=== PATIENT | male | born 1950 | race Caucasian/White ===

== ENCOUNTER → 2024-01-10 09:07 | Outpatient (REF) | payer MEDICARE, OTHER, SELFPAY | LOC: DHCBS MAIN 09:07 | PROVIDERS: ATTENDING PHYSICIAN Internal Medicine Cardiovascular Disease; FAMILY PHYSICIAN Family Medicine | DX: I25.10 Atherosclerotic heart disease of native coronary artery without angina pectoris (principal); Z95.1 Presence of aortocoronary bypass graft; E78.00 Pure hypercholesterolemia, unspecified; N18.30 Chronic kidney disease, stage 3 unspecified | CPT/HCPCS: 93306 ==

== ENCOUNTER → 2024-04-16 07:39 | Outpatient (REF) | payer MEDICARE, OTHER, SELFPAY ==
[2024-04-16 09:14] LABS: Hematocrit 33.4 % (39.0-52.0); Mean Corp Hgb Conc. 32.9 g/dL (33.0-37.0); Mean Corpuscular Hgb 32.3 pg (27.0-31.0); Mean Corpuscular Volume 97.9 fL (80.0-94.0); Mean Platelet Volume 10.6 fL (7.4-10.4); Platelet Count 299 10^3/uL (130-400); Red Blood Cell Count 3.41 10^6/uL (4.70-6.10); Red Cell Dist. Width 13.2 % (11.5-14.5); White Blood Cell Count 9.6 10^3/uL (4.8-10.8)
[2024-04-16 09:33] LABS: NT-proBNP 4610 pg/ml
[2024-04-16 12:03] LABS: ALT (SGPT) 14 U/L (0-50); AST (SGOT) 22 U/L (17-59); Albumin 3.3 g/dl (3.5-5.0); Alkaline Phosphatase 65 U/L (38-126); Blood Urea Nitrogen 41 mg/dl (9-20); Calcium 8.8 mg/dl (8.4-10.2); Carbon Dioxide 20 mmol/L (22-30); Chloride 112 mmol/L (98-107); Glucose 80 mg/dl (70-99); HDL Cholesterol 30 mg/dl; LDL Cholesterol, Calculated 151 mg/dl; Phosphorus 3.9 mg/dl (2.5-4.5); Potassium 4.9 mmol/L (3.5-5.1); Sodium 140 mmol/L (135-145); Total Bilirubin 0.4 mg/dl (0.2-1.3); Total Cholesterol 204 mg/dl (50-199); Total Protein 6.2 g/dl (6.3-8.2); Triglyceride 117 mg/dl (10-149); Very Low Density Lipoprotein 23 mg/dl (0-30); eGFR 32.62
[2024-04-16 12:21] LABS: Calcium 9.1 mg/dl (8.4-10.2)
[2024-04-16 12:32] LABS: Urine Protein 16 mg/dl (0-12)
[2024-04-17 10:31] LABS: CRP, Highly Sensitive > 15.00 mg/L
[2024-04-18 09:40] LABS: Intact PTH 46.3 pg/ml (13.6-85.8)
== END ==
LOC: REG 07:39
PROVIDERS: ATTENDING PHYSICIAN Internal Medicine Cardiovascular Disease; FAMILY PHYSICIAN Family Medicine; REFERRING PHYSICIAN Internal Medicine
DX: Z95.1 Presence of aortocoronary bypass graft (principal); E78.00 Pure hypercholesterolemia, unspecified; N18.32 Chronic kidney disease, stage 3b; N39.0 Urinary tract infection, site not specified
CPT/HCPCS: 36415; 80053; 80061; 82570; 83880; 83970; 84100; 84156; 85027; 86141

== ENCOUNTER → 2024-08-17 09:18 | Outpatient (REF) | payer MEDICARE, OTHER, SELFPAY | LOC: SDSPAT 09:18 | PROVIDERS: ATTENDING PHYSICIAN Surgery; FAMILY PHYSICIAN Family Medicine; OTHER PHYSICIAN Internal Medicine Cardiovascular Disease | DX: Z01.810 Encounter for preprocedural cardiovascular examination (principal); I49.3 Ventricular premature depolarization; I45.10 Unspecified right bundle-branch block | CPT/HCPCS: 36415; 93005 ==

== ENCOUNTER 2024-08-27 06:40 | Day surgery (SDC) | payer MEDICARE, OTHER, SELFPAY ==
[2024-08-17 14:12] VITALS: BMI 24.2
--- NOTE | 2024-08-17 16:15 | PTCARENOTE ---
Abn ECG, Toya Ellis notified, no new requests.
[2024-08-27] VITALS (8 sets, daily range): BP systolic 139–164; BP diastolic 72–82; BMI 24.2
[2024-08-27] MEDS: TYLENOL 1000 MG PO (12:15)
[2024-08-27] MEDS: NORMOSOL-R/PLASMALYTE-A 1000 IV (12:16)
--- NOTE | 2024-08-27 13:39 | W.SUR.PREOP ---
Pre-Operative Surgical Note
-
I have examined this patient prior to the performance of the scheduled procedure.
The patient's condition is unchanged from the time of the current History and
Physical and the patient is able to undergo the scheduled procedure.
--- NOTE | 2024-08-27 13:45 | HP.FOC2 ---
Focused History & Physical
Chief Complaint
HPI:
Chief Complaint: Incisional hernia
HPI / Indication for Planned Procedure:
Relevant Past Medical History: Negative
Relevant Social History: Negative
Relevant Family History: Negative
Relevant Past Surgical History: Negative
Review of Systems
Review of Pertinent Systems: All Systems Negative
Medication
See Medication form for detailed medications: Yes
Medication List (including Herbals & OTC):
zinc 100 mg tablet (Zinc Chelate) 100 mg PO DAILY Supplement 09/13/20
B-complex with vitamin C 1 cap PO DAILY Supplement 11/08/20
ascorbic acid (vitamin C) 500 mg tablet (Vitamin C) 500 mg PO DAILY Supplement 11/08/20
cholecalciferol (vitamin D3) 25 mcg (1,000 unit) tablet 5,000 units PO DAILY Supplement 11/08/20
coenzyme Q10 100 mg capsule (Co Q-10) 100 mg PO DAILY Supplement 11/08/20
Berberin Complex 1 unit PO DAILY 08/18/24
Lcarnitine 1 unit PO DAILY 08/18/24
Multivitamin Food Source 1 unit PO DAILY 08/18/24
Pqq 1 unit PO DAILY 08/18/24
Super K 1 unit PO DAILY 08/18/24
arginine 1,000 mg-B12 16.6 mcg-folic acid 66.6 mcg-B6 3.3 mg tablet (L-Arginine [facility] [place]) 1 tab PO DAILY 08/18/24
cranberry 1 unit PO DAILY 08/18/24
hawthorn 500 mg capsule 1 mg PO DAILY 08/18/24
magnesium gluconate 500 mg tablet 1 mg PO DAILY 08/18/24
pvvju1-xda-lym-other gfwhw3p-hrvs oil 350 mg-400 mg capsule 750 cap PO TID 08/18/24
quercetin 500 mg capsule 1 mg PO DAILY 08/18/24
resveratrol 50 mg capsule 50 mg PO DAILY 08/18/24
selenium 50 mcg tablet 50 mcg PO DAILY 08/18/24
taurine 500 mg capsule 1,000 mg PO DAILY 08/18/24
vitamin E 1,000 unit tablet 1 tab PO DAILY 08/18/24
acetaminophen 325 mg tablet 650 mg (2 x 325 mg) PO Q6HPRN PRN mild pain #14 tabs 08/27/24
ibuprofen 600 mg tablet 600 mg PO Q6H PRN pain #14 tabs 08/27/24
tramadol 50 mg tablet 25 mg (1/2 x 50 mg) PO Q6HPRN PRN severe pain/breakthrough pain #12 tabs 08/27/24
Medications Reviewed: Yes
Allergies and Reactions
Patient has Allergies: Yes
Noted Allergies and Reactions:
Allergy/AdvReac Type Severity Reaction Status Date / Time
No Known Allergies Allergy Unverified 08/27/24 11:56
Pertinent Physical Exam
All Other Systems: Negative
Head/Neck: Normal
Diagnosis / Assessment
Incisional hernia
Plan / Procedure
Robotic incisional hernia repair with mesh
Anesthesia/Sedation to be done by Anesthesia Provider: Yes
--- NOTE | 2024-08-27 16:23 | W.IMMPOSTOP ---
Surgical Immed Post Op Note
-
Primary Surgeon: Isiah Dutton MD
Assisting Surgeon: None
Pre-op Diagnosis: Ventral incisional hernia
Post-op Diagnosis: Same
Procedure Performed: Robotic ventral incisional hernia repair with mesh (JESSICA approach)
Anesthesia Type: General
Specimen / Cultures: None
Estimated Blood Loss: 3 cc
Complications: None
Operative Findings: 1.5 cm centimeter defect half a centimeter above the umbilicus. There was an additional 0.5 cm defect noted here. The preperitoneal space was dissected and after closure of the defect with a running 0 V-Loc 180 suture the
repair was reinforced with a 10 x 10 cm Bard soft uncoated polypropylene mesh.
--- NOTE | 2024-08-27 16:27 | OR.RPT ---
Operative Report
Operative Report
Patient Name: Jose Nicole
: 1950
Date of Operation: 08/27/2024
Preoperative Diagnosis: Incisional hernia
Postoperative Diagnosis: Same
Procedure(s):
Robotic incisional hernia repair with mesh (JESSICA approach)
Surgeon(s):
Dr. Dutton
[place]water Technician(s):
ZOE Hathaway
Anesthesia: General
Estimated Blood Loss: 3 cc
Urine Output: None
Drains/Lines/Implants:
10 x 10 cm round Bard soft mesh
Specimens:
None
HPI/Surgical Indications:
This is a 73-year-old male who was seen in my office for a symptomatic supraumbilical hernia at a previous incision site and diagnosed with an incarcerated incisional hernia. Risks/Benefits/Alternatives were discussed at length, and the patient
agreed to proceed with surgery.
Operative Findings: 1.5 cm centimeter defect half a centimeter above the umbilicus. There was an additional 0.5 cm defect noted here. The preperitoneal space was dissected and after closure of the defect with a running 0 V-Loc 180 suture the
repair was reinforced with a 10 x 10 cm Bard soft uncoated polypropylene mesh.
Procedure Description:
The patient was brought to the Operating Room and placed in the supine position with the arms tucked. IV antibiotics were infused and Venodyne stockings placed. Following uneventful induction of general endotracheal anesthesia, an orogastric tube
were placed. The abdomen was prepped and draped in the usual sterile fashion. The abdomen was entered using a Veress technique which required 1 pass, pneumoperitoneum to 15 mmHg was obtained without difficulty. An 8mm trochar was passed through
the abdominal wall roughly 20 cm laterally from the defect in the left upper quadrant, we then confirmed that no inadvertent injury was made while passing the trocar or Veress needle. We then placed two additional 8 mm ports in the left lower
quadrant. Bilateral tap blocks were performed. The robot was docked. We then introduced our prograsper through the inferior/left hand port and a monopolar scissors through the superior port. We then turned our attention to the hernia which had
no intra-abdominal contents. We then began taking a flap down roughly 6 cm away from the defect and roughly 11 cm in length taking care to stay in the pretransversalis plane. The preperitoneal fat was taken down off of the posterior rectus sheath
both superior and inferior to the hernia defect such that we were able to get our 'volcano sign'. We then worked on reducing the defect which contained preperitoneal fat and continued our dissection out laterally for an additional 6 to 7 cm. Once
our flap was created we introduced a ruler and a 0 V-Loc 180. The main hernia defect measured 1.5 cm, there was an additional subcentimeter umbilical defect about half a centimeter inferior to the incisional one. The pocket measured 11 x 11 cm. I
had my specimen preparation assistant cut a 11 x 11 cm piece of Bard soft mesh marked with 0 Vicryl suture at the center, as I closed the incisional and umbilical defects. The mesh was then sutured to the posterior rectus sheath in 4 quadrants with 2-0 vircyls to
ensure good apposition. A 2-0 Monocryl was introduced which was used to close our flap. There were multiple rents in the peritoneum that were closed with 2-0 Vicryl sutures. There was no exposed mesh at the end of our suturing. All sutures were
removed. The robot was undocked. The ports were removed under direct visualization and pneumoperitoneum was evacuated. The port sites were closed with 4-0 Monocryl followed by Dermabond. Counts were correct and overall, the patient tolerated the
procedure well and was taken to the Recovery Room postoperatively in stable condition.
I was the attending physician and performed the procedure with assistance of the PA above. The assistance of ZOE Hathaway was required due to the complexity of the procedure. During the procedure Laurie assisted with port placement, instrument
and needle exchanges, and closure of the wound. I was present for all portions of the case, excluding skin closure.
Isiah Dutton MD
== END 2024-08-27 17:36 | disposition home or self-care (01) ==
LOC: SDS 06:40
PROVIDERS: ATTENDING PHYSICIAN Surgery
DX: K43.2 Incisional hernia without obstruction or gangrene (principal)
CPT/HCPCS: 49591; C1781

== ENCOUNTER 2025-03-13 23:39 | Inpatient (IN) | payer MEDICARE, OTHER, SELFPAY ==
[2025-03-13 20:47] VITALS: BP 147/72
[2025-03-13 20:55] VITALS: BMI 23.7
[2025-03-13 21:00] VITALS: BP 147/64
[2025-03-13] MEDS: TYLENOL 1000 MG PO (21:02)
[2025-03-13] MEDS: NSS 1000 IV (21:02)
[2025-03-13 21:14] LABS: Hematocrit 34.9 % (39.0-52.0); Hemoglobin 11.9 g/dL (13.0-18.0); Mean Corp Hgb Conc. 34.1 g/dL (33.0-37.0); Mean Corpuscular Volume 94.3 fL (80.0-94.0); Nucleated Red Blood Cells % 0 % (-); Platelet Count 178 10^3/uL (130-400); Red Cell Dist. Width 12.8 % (11.5-14.5)
--- NOTE | 2025-03-13 21:15 | ED.GENMED ---
History of Present Illness
General
Chief Complaint: Fever
Source: patient and ambulance crew
Time Seen by Provider: 03/13/25 20:56
History of Present Illness
History of Present Illness:
74-year-old male brought to the emergency room for fever. Patient has been feeling unwell for the past couple weeks. He has a cough, fatigue. Today he had a fever reportedly up to 105. 911 was called because he was so fatigued and his
temperature was so high. Patient denies taking any medications which would make him immunocompromised. He denies any recent hospitalizations. Aside from his mild cough he has no other focal complaints. He does endorse having prostate issues in
the past.
Past History
Past History
ED Past Medical History: CAD, Other (Rheumatoid arthritis with new onset, renal insufficiency) and Other (BPH, self caths); Negative Cancer or HTN
ED Past Surgical History: Cardiac (2 vessell CABG Sep 2020)
Social History
Tobacco: Non-smoker
Personal:
Living: with family
Employment: Employed
Phy Exam
Physical Exam
Physical Exam:
General: Awake, Alert, Oriented X3. Perhaps mildly confused, no acute distress appears stated age
Vitals: Febrile, tachycardic, normotensive
Head: Atraumatic
Eyes: Pupils equal, EOMI
Throat: Airway intact, no exudates, dry mucosa
Neck: Trachea midline
Lungs: Coarse breath sounds bilateral bases
Heart: Regular rate, no murmurs
Abd: Soft, Nontender, No pulsatile mass
Neuro: Nonfocal
Skin: Warm, dry, no rash
Extremities: pulses equal b/l, no edema
Sepsis
Sepsis Screening
Sepsis Assessment: Sepsis
Sepsis Screen
Sepsis Screen: Sepsis
Date: 03/16/25
Time: 08:37
Course
Orders/Labs/Results
Orders:
Orders
03/13/25 20:56
0.9% Sodium Chloride 1000 ml [Nss] 1,000 ml IV BOLUS
Acetaminophen [Tylenol] 1,000 mg PO NOW STA
03/13/25 20:57
CR Chest - 2 Views Urgent
Comment:
Reason For Exam: fever, cough
03/13/25 21:01
Complete Blood Count/With Diff Urgent
Comprehensive Metabolic Panel Urgent
Lactic Acid Q4H
Comment: CANCEL 2nd LACTIC ACID IF 1st LACTIC ACID IS LESS THAN 2
Blood Culture Q30M
VIKI Source: Blood/Venous
Specimen Description:
Blood Culture Q30M
VIKI Source: Blood/Venous
Specimen Description:
Influenza A+B Rapid Molecular Urgent
VIKI Source: Nasal Swab
Specimen Description:
03/13/25 21:13
Urinalysis Reflex To Culture Urgent
Date Specimen was Collected: 03/13/25
Time Specimen was Collected: 20:58
Urine Microscopic Reflex Cult Urgent
Urine Culture Urgent
VIKI Source: U
Specimen Description:
Date Specimen was Collected: 03/13/25
Time Specimen was Collected: 20:58
03/13/25 22:37
CefTRIAXone [Rocephin] 2,000 mg IV NOW STA
Doxycycline [Vibramycin] 100 mg PO NOW STA
03/13/25 23:00
Flush (0.9% Sodium Chloride) [Flush (Nss)] See Dose Instructions IV PER PROTOCOL
03/13/25 23:02
Admit/Transfer Patient As Directed
Co-Sign Provider:
Level of Care: Inpatient admission
Assign to:: Medical/Surgical
Physician / Group: edith
Diagnosis: sepsis pneumonia
Reason for Hospitalization: sepsis pneumonia
Expected length of stay greater than two midnights?: Yes
ELOS- Estimated Length of Stay in days: 2
I certify the patient meets the requirements for IP care: Yes
03/13/25 23:03
PRN Pain Medication Management As Directed
May give lesser potent ordered pain med per pt: Yes
preference::
Protocol:: Medication orders for pain may be administered in a
manner that supports deferring to patient preference
when the pt is:
- Requesting an ordered lesser potent pain medication.
Least to most potent pain medications are defined
as: acetaminophen < NSAID < tramadol < opioids
(morphine, oxycodone, hydromorphone).
- Requesting a lesser dose of the same medication IF
ORDERED.
- Requesting a less intrusive route of administration
if both routes are prescribed by the provider (PO <
IV).
03/13/25 23:04
Code Status As Directed
Resuscitation Status: Full Code
03/13/25 23:06
Influenza A+B Rapid Molecular Urgent
VIKI Source: Nasal Swab
Specimen Description:
03/13/25 23:50
COVID-19 Antigen Urgent
Source: Nasal Swab
03/14/25 01:41
0.9% Sodium Chloride 1000 ml [Nss] 1,000 ml IV 100 mls/hr
Acetaminophen [Tylenol] 650 mg PO Q4HPRN PRN
Pantoprazole [Protonix] 40 mg PO BID
03/14/25 01:41
Activity As Directed
Activity Level: As Tolerated
Bladder Scan As Directed
Follow Bladder Retention/Intermittent Cath Algorithm?: Yes
PRN if no void in __ hours: 6
Frequency: Per Retention Algorithm
If Bladder Scan Result >: 400
then:: Straight cath
Straight Cath As Directed
Frequency: Per Retention Algorithm
Additional Instructions: straight cath as needed per acute urinary retention algorithm for 24 hrs
Additional Instructions: for bladder scan greater than 400 mL
Vital Signs As Directed
Frequency: Per unit guidelines
DX Deep Vein Thrombosis Video Routine
03/14/25 02:38
Lactic Acid Q4H
Comment: CANCEL 2nd LACTIC ACID IF 1st LACTIC ACID IS LESS THAN 2
03/14/25 06:44
Complete Blood Count/With Diff IN AM
Comprehensive Metabolic Panel IN AM
03/14/25 08:00
Doxycycline [Vibramycin] 100 mg PO Q12
Heparin 5,000 units SC Q12
03/14/25 Dinner
Regular
At Your Request: Limited Participation
03/14/25 22:00
CefTRIAXone [Rocephin] 1,000 mg IV Q24H
Abnormal Lab Results
03/13/25 03/13/25
21:01 21:13
WBC 13.8 H 10^3/uL
(4.8-10.8)
RBC 3.70 L 10^6/uL
(4.70-6.10)
Hgb 11.9 L g/dL
(13.0-18.0)
Hct 34.9 L %
(39.0-52.0)
MCV 94.3 H fL
(80.0-94.0)
MCH 32.2 H pg
(27.0-31.0)
MPV 11.5 H fL
(7.4-10.4)
Abs Immat Gran (auto) 0.1 H 10^3/uL
(0-0.05)
Absolute Neuts (auto) 11.4 H 10^3/uL
(1.4-6.5)
Absolute Lymphs (auto) 0.8 L 10^3/uL
(1.2-3.4)
Absolute Monos (auto) 1.6 H 10^3/uL
(0.1-0.6)
Immature Gran % 0.7 H %
(0-0.5)
Neutrophils % 82.2 H %
(42.2-75.2)
Lymphocytes % 5.6 L %
(20.5-51.1)
Monocytes % 11.4 H %
(1.7-9.3)
Sodium 133 L mmol/L
(135-145)
Carbon Dioxide 16 L mmol/L
(22-30)
BUN 53 H mg/dl
(9-20)
Creatinine 3.3 H mg/dL
(0.7-1.3)
Glucose 134 H mg/dl
(70-99)
Calcium 8.3 L mg/dl
(8.4-10.2)
Total Protein 6.2 L g/dl
(6.3-8.2)
Ur Occult Blood Reflex 3+ A
(Negative)
Urine RBC 16-20 A /HPF
(0-2)
Urine Bacteria (Reflex) Many A
(Negative)
Urine Albumin (Reflex) 3+ A
(Neg - Trace)
03/13/25 21:01
03/13/25 21:01
Vital Signs
Initial and Last Documented VS:
Initial Vital Signs
Temp Pulse Resp BP Pulse Ox
103.2 F H 93 16 147/72 96
03/13/25 20:47 03/13/25 20:47 03/13/25 20:47 03/13/25 20:47 03/13/25 20:47
Last Documented Vital Signs
Temp Pulse Resp BP Pulse Ox
97.7 F 121 16 101/55 92
03/16/25 07:54 03/16/25 07:54 03/16/25 07:54 03/16/25 07:54 03/16/25 07:54
MDM/Problems Addressed
Differential Diagnosis Includes:
UTI, pneumonia, COVID, other viral illness
MDM/Problems Addressed:
Patient presents with fatigue, cough. He is found to be febrile here. Workup reveals multifocal pneumonia. Urine not suggestive of urinary tract infection. Patient started on ceftriaxone and doxycycline. Patient required hospitalization due to
renal failure as well as hypoxia.
Chronic conditions affecting care: HTN, CAD and Other (Chronic kidney disease)
*Radiology
Radiology exam reviewed: preliminary read by ED provider (My review of the patient's chest x-ray reveals multifocal pneumonia)
*Pulse Oximetry
SaO2: 96
Oxygen Mode of Delivery: Room air
Patient hypoxic: no
*EKG
Interpreted by ED Provider?: NA
*Critical Care Note
Total Time (30-74mins, 75-104mins- exclusive of procedures): Not Applicable
ED Attending Note
-
Portions of this chart may have been created with voice recognition software.� Occasional wrong word or��sound alike� substitutions may have occurred due to the inherent limitations of voice recognition software.
Discharge Plan
Departure
Patient Disposition: Admit
Date of Disposition: 03/13/25
Time of Disposition: 22:45
Admit to: Med/Surg
Presentation/result/management discussed w/ accepting MD/DO: Hospitalist
Condition: Fair
Discharge Problem:
Pneumonia, Acute on chronic kidney failure
Interventions
Interventions:
*Risk Screen - Suicide Last Done: 03/14/25 01:49
*General Assessment Last Done: 03/13/25 20:47
*Neglect/Abuse Screening Last Done: 03/13/25 20:47
*ED COVID-19 Vaccine History Last Done: 03/14/25 01:49
*Nursing Disposition Last Done: 03/14/25 01:30
ED- Neurological Assessment Last Done: 03/13/25 20:52
ED-Skin Assessment Last Done: 03/13/25 20:52
Discharge Date and Time
Discharge Date/Time: 03/14/25 01:46
--- NOTE | 2025-03-13 21:30 | EDRN ---
Attempt to straight cath patient d/t patient's inability to void when using urinal and bladder scan of 425. Unable to pass 16 FR cath, second attempt using caude unsuccessful. Pt tolerated well. Dr. Back made aware.
[2025-03-13 21:36] LABS: ALT (SGPT) 36 U/L (0-50); AST (SGOT) 42 U/L (17-59); Albumin 3.5 g/dl (3.5-5.0); Alkaline Phosphatase 56 U/L (38-126); Blood Urea Nitrogen 53 mg/dl (9-20); Calcium 8.3 mg/dl (8.4-10.2); Carbon Dioxide 16 mmol/L (22-30); Chloride 106 mmol/L (98-107); Estimated Creatinine Clearance 19 ml/min; Glucose 134 mg/dl (70-99); Potassium 4.7 mmol/L (3.5-5.1); Sodium 133 mmol/L (135-145); Total Protein 6.2 g/dl (6.3-8.2); eGFR 18.85
[2025-03-13 21:51] LABS: Urine Character Clear (Clear)
[2025-03-13 21:59] LABS: Urine Squamous Cell 0-2 /LPF (Few)
[2025-03-13 22:00] VITALS: BP 113/62
[2025-03-13 22:00] LABS: Urine Red Blood Cell 16-20 /HPF (0-2); Urine White Cell 0-2 /HPF (0-5)
[2025-03-13 23:00] VITALS: BP 115/59
[2025-03-13] MEDS: ROCEPHIN 2000 MG IV (23:06)
[2025-03-13] MEDS: VIBRAMYCIN 100 MG PO (23:06)
--- NOTE | 2025-03-13 23:08 | HPS.HSE ---
Family Physician
-
Family Physician: NOT KNOW UNKNOWN - PT DOES
Chief Complaint
-
fever
History of Present Illness
74-year-old male past medical history of CAD status post CABG, BPH, bladder diverticulum status post cystoscopy with diverticulectomy, hyperlipidemia, rheumatoid arthritis, esophageal ulcers, Lyme's disease, CKD 3A, iron deficiency anemia,
presenting with fever and productive cough and fatigue for few days. He had fever up to 105 degrees today. Denies vomiting or diarrhea. Denies chest pain. Denies shortness of breath. Has sore throat for few days. No sick contacts
Recently he has been having dribbling of urine and difficulty voiding and had an episode of urine incontinence today. No prior episodes of incontinence.
Over the past few months he has also been having some difficulty swallowing large pills. No particular difficulty swallowing food or liquids. He had burping today. He has been having more heartburn recently.
He does not smoke or drink alcohol.
Medical History
Past Medical History
Past Medical History: Reports Other (CAD status post CABG, BPH, bladder diverticulum status post cystoscopy with diverticulectomy, hyperlipidemia, rheumatoid arthritis, esophageal ulcers, Lyme's disease, CKD 3A, iron deficiency anemia)
Past Surgical History: Reports None
Social History
Tobacco: Non-smoker
Alcohol: None
Drug: None
Family History
Family History: Not pertinent
Allergies / Home Medications
Allergies reflects when Allergies were last updated in [employer].
Home Medications with original date entered in [employer]
Allergy/Medication List:
Allergies
Allergy/AdvReac Type Severity Reaction Status Date / Time
No Known Allergies Allergy Verified 03/13/25 20:46
Home Medications
zinc 100 mg tablet (Zinc Chelate) 100 mg PO DAILY Supplement 09/13/20
B-complex with vitamin C 1 cap PO DAILY Supplement 11/08/20
ascorbic acid (vitamin C) 500 mg tablet (Vitamin C) 500 mg PO DAILY Supplement 11/08/20
cholecalciferol (vitamin D3) 25 mcg (1,000 unit) tablet 5,000 units PO DAILY Supplement 11/08/20
coenzyme Q10 100 mg capsule (Co Q-10) 100 mg PO DAILY Supplement 11/08/20
Berberin Complex 1 unit PO DAILY 08/18/24
Lcarnitine 1 unit PO DAILY 08/18/24
Multivitamin Food Source 1 unit PO DAILY 08/18/24
Pqq 1 unit PO DAILY 08/18/24
Super K 1 unit PO DAILY 08/18/24
arginine 1,000 mg-B12 16.6 mcg-folic acid 66.6 mcg-B6 3.3 mg tablet (L-Arginine [employer]) 1 tab PO DAILY 08/18/24
cranberry 1 unit PO DAILY 08/18/24
hawthorn 500 mg capsule 1 mg PO DAILY 08/18/24
magnesium gluconate 500 mg tablet 1 mg PO DAILY 08/18/24
eybii1-ggg-coc-other wdomq0n-qzzf oil 350 mg-400 mg capsule 750 cap PO TID 08/18/24
quercetin 500 mg capsule 1 mg PO DAILY 08/18/24
resveratrol 50 mg capsule 50 mg PO DAILY 08/18/24
selenium 50 mcg tablet 50 mcg PO DAILY 08/18/24
taurine 500 mg capsule 1,000 mg PO DAILY 08/18/24
vitamin E 1,000 unit tablet 1 tab PO DAILY 08/18/24
acetaminophen 325 mg tablet 650 mg (2 x 325 mg) PO Q6HPRN PRN mild pain #14 tabs 08/27/24
ibuprofen 600 mg tablet 600 mg PO Q6H PRN pain #14 tabs 08/27/24
tramadol 50 mg tablet 25 mg (1/2 x 50 mg) PO Q6HPRN PRN severe pain/breakthrough pain #12 tabs 08/27/24
Review of Systems
-
History Source: Patient
A 12 point ROS was completed and negative except as noted: Yes
Constitutional: Reports No Symptoms
EENT: Reports No Symptoms
Respiratory: Reports See HPI
Cardiac: Reports No Symptoms
Abdomen/GI: Reports No Symptoms
: Reports No Symptoms
Musculoskeletal: Reports No Symptoms
Skin: Reports No Symptoms
Neurological: Reports No Symptoms
Endocrine: Reports No Symptoms
Hematologic/Lymphatic: Reports No Symptoms
Psych: Reports No Symptoms
Physical Exam
Vital Signs
Vital Signs
Temp Pulse Resp BP Pulse Ox
98.8 F 72 10 115/59 95
03/13/25 22:21 03/13/25 23:00 03/13/25 23:00 03/13/25 23:00 03/13/25 23:00
Physical Exam
General: Well Developed, Well Nourished and No Apparent Distress
HEENT: NormoCephalic, Moist mucous membranes and Atraumatic
Respiratory: Clear
Cardiac: S1/S2 and Regular Rhythm; No Murmur or Rub
GI: Soft, Non Tender, Non Distended and Normal Bowel Sounds; No Organomegaly
Rectal: Deferred by Provider
Musculoskeletal: No Clubbing, No Cyanosis and No Edema
Skin: No Rash
Neuro: Nonfocal/grossly intact
Laboratory Results
-
03/13/25 21:01
03/13/25 21:01
Laboratory Results
Lactic Acid 1.3 mmol/L (0.7-2.0) 03/13/25 21:01
Total Bilirubin 0.7 mg/dl (0.2-1.3) 03/13/25 21:01
AST 42 U/L (17-59) 03/13/25 21:01
ALT 36 U/L (0-50) 03/13/25 21:01
Alkaline Phosphatase 56 U/L (38-126) 03/13/25 21:01
Data Reviewed
-
Lab Data: Labs Reviewed by me
Old Records: Reviewed
Impression/Plan
-
IMPRESSION:
PLAN:
# Sepsis (fever, tachycardia, leukocytosis) secondary to right-sided pneumonia
- Chest x-ray report pending but appears to show right-sided midlung infiltrate
-Urinalysis unremarkable
- Check sputum culture, blood cultures
- IV fluids
- Check COVID and influenza
- Ceftriaxone/doxycycline
# JUDIE on CKD 3A
# Non-anion gap metabolic acidosis
-Baseline creatinine around 2.1-2.3
- Likely prerenal
- Monitor with IV fluid
# Urinary incontinence
# History of bladder diverticulum status post cystoscopy diverticulectomy
# History of BPH
- Bladder scan protocol
- Outpatient follow-up with urology
# Dysphagia with pills possibly pill esophagitis
# History of GERD/esophageal ulcers
- Protonix 40 twice daily
- Outpatient follow-up with GI
CAD status post CABG
Hyperlipidemia
Rheumatoid arthritis
Lyme's disease
Chronic anemia
Iron deficiency anemia
Full code
DVT prophylaxis�heparin
Regular diet
[2025-03-14] VITALS (7 sets, daily range): BP systolic 120–153; BP diastolic 61–83; PULSE 91; O2SAT 97; BMI 22.8
[2025-03-14 00:07] LABS: COVID-19 Antigen Negative (Negative)
[2025-03-14] MEDS: NSS 1000 IV (02:06)
[2025-03-14] MEDS: PROTONIX 40 MG PO ×3 (02:06→20:33)
[2025-03-14 07:13] LABS: Hematocrit 32.4 % (39.0-52.0); Hemoglobin 10.9 g/dL (13.0-18.0); Mean Corp Hgb Conc. 33.6 g/dL (33.0-37.0); Mean Corpuscular Volume 94.2 fL (80.0-94.0); Nucleated Red Blood Cells % 0 % (-); Platelet Count 176 10^3/uL (130-400); Red Cell Dist. Width 13.0 % (11.5-14.5)
[2025-03-14 07:39] LABS: ALT (SGPT) 29 U/L (0-50); AST (SGOT) 31 U/L (17-59); Albumin 2.9 g/dl (3.5-5.0); Alkaline Phosphatase 44 U/L (38-126); Blood Urea Nitrogen 58 mg/dl (9-20); Calcium 8.4 mg/dl (8.4-10.2); Carbon Dioxide 17 mmol/L (22-30); Chloride 110 mmol/L (98-107); Estimated Creatinine Clearance 20 ml/min; Glucose 127 mg/dl (70-99); Potassium 4.6 mmol/L (3.5-5.1); Sodium 136 mmol/L (135-145); Total Protein 5.4 g/dl (6.3-8.2); eGFR 20.32
[2025-03-14] MEDS: VIBRAMYCIN 100 MG PO ×2 (08:17→20:33)
[2025-03-14] MEDS: HEPARIN 5000 UNITS SC ×2 (08:17→20:32)
--- NOTE | 2025-03-14 11:58 | W.PN.HOSP.TC ---
Addendum entered and electronically signed by Cayden Valero MD 03/14/25 13:33:
Discussed care plan with spouse
Apparently spouse stated of patient having frequent episodes of choking which patient likely under reporting to me during the morning rounds. Patient have a follow-up appointment with Dr. Villanueva on 16 April
Patient also having some hiccup and spouse requesting some medication. Thorazine can be tried although with side effect profile limiting use for now. Patient already on twice daily PPI, adding some Tums and if it is related to esophageal/gastritis
should improve.
Speech therapy evaluation is pending
Original Note:
Today's Communication/Plan
-
see note
Assessment / Plan
Assessment / Plan
# Sepsis
# Multifocal pneumonia
-Chest x-ray showing multifocal pneumonia with infrahilar airspace opacities in both lungs.
-Patient denies of history of having recurrent pneumonia. Not a smoker. No previous diagnosis of COPD/emphysema/asthma
-UA/COVID/flu negative
-Rule out bacteremia with ongoing high-grade fever episodes
-Maintained on empiric Rocephin/doxycycline
# JUDIE on CKD 3A
# Non-anion gap metabolic acidosis
-Baseline creatinine around 2.1-2.3
-cr trending down
-avoid nephrotoxic medication
-bladdr scan ordered
#Melena
#h/o esophageal ulcer
#Iron def anemia
-reporting black stool , new
-check stool for occult blood
-on iron supplement home ,
-maintain on bid ppi
# Urinary incontinence
# History of bladder diverticulum status post cystoscopy diverticulectomy
# History of BPH
- Bladder scan protocol
- Outpatient follow-up with urology
CAD status post CABG
Hyperlipidemia
Rheumatoid arthritis
Lyme's disease
Full code
DVT prophylaxis�heparin
Total time spent : 52 mins
Anticipated Discharge: 24 - 48 hours
Subjective/Interval History
-
Date of Service: March 14, 2025
Denies of having any shortness of breath
Dry cough only
Remains febrile
Not on oxygen
Objective Data
-
Labs:
Laboratory Results
03/14/25
06:44
WBC 11.5 H
Hgb 10.9 L
Hct 32.4 L
Plt Count 176
Sodium 136
Potassium 4.6
Chloride 110 H
Carbon Dioxide 17 L
BUN 58 H
Creatinine 3.1 H
Glucose 127 H
Calcium 8.4
Total Bilirubin 0.5
AST 31
ALT 29
Alkaline Phosphatase 44
Vital Signs:
Vital Signs
Temp Pulse Resp BP Pulse Ox
100.6 F H 86 16 129/61 96
03/14/25 07:37 03/14/25 07:37 03/14/25 07:37 03/14/25 07:37 03/14/25 07:37
Review of Systems
-
Respiratory: Reports Cough; Denies Trouble Breathing
Cardiac: Reports No Symptoms
Abdomen/GI: Reports No Symptoms
Physical Exam
-
General: No Apparent Distress and Comfortable
HEENT: Negative Oxygen
Respiratory: Clear to Auscultation
Cardiac: Rub
GI: Soft, Nontender, Nondistended and Normal Bowel Sounds
Musculoskeletal: No Edema
Neuro: Awake, Alert, Oriented, No Motor Deficits and Nonfocal/Grossly Intact
Psych: Calm
--- NOTE | 2025-03-14 13:01 | CHAP ---
Jose and his supportive , Delia, welcomed the visit. Emotional and spiritual support provided.
[2025-03-14] MEDS: TYLENOL 650 MG PO (15:29)
[2025-03-14] MEDS: TUMS CHEWABLE TABLET 400 MG PO (15:30)
--- NOTE | 2025-03-14 15:39 | CM ---
Patient seen bedside, initial assessment completed. Patient is a 74-year-old male past medical history of CAD status post CABG, BPH, bladder diverticulum status post cystoscopy with diverticulectomy, hyperlipidemia, rheumatoid arthritis, esophageal
ulcers, Lyme's disease, CKD 3A, iron deficiency anemia, presenting with fever and productive cough and fatigue.
Patient resides w/ spouse in a 3 sty split level home, 12 steps to enter the home, 12 steps to the second level of the home where bedroom and bathroom are located. Patient is independent in all areas. Patient has a grab bar in the shower and neb
machine that is used as needed. Denies SNF/HC hx.
Address, point of contact and insurance verified
PCP: Raymond Mcfarland
Pharmacy: [facility]
Therapy assessed, rec home health at d/c
Speech eval pending
Plan: Home w/ HH
[2025-03-14] MEDS: ROCEPHIN 1000 MG IV (20:33)
[2025-03-14] MEDS: SYNTHROID 50 MCG PO (23:00)
[2025-03-15 05:37] VITALS: BMI 22.5
[2025-03-15 07:18] VITALS: BP 132/65
[2025-03-15] MEDS: VIBRAMYCIN 100 MG PO ×2 (07:51→21:00)
[2025-03-15] MEDS: PROTONIX PO ×2 (07:51→07:58)
[2025-03-15] MEDS: HEPARIN SC ×2 (07:51→07:57)
[2025-03-15 09:37] LABS: Hematocrit 32.8 % (39.0-52.0); Hemoglobin 11.0 g/dL (13.0-18.0); Mean Corp Hgb Conc. 33.5 g/dL (33.0-37.0); Mean Corpuscular Volume 95.1 fL (80.0-94.0); Platelet Count 227 10^3/uL (130-400); Red Cell Dist. Width 13.1 % (11.5-14.5)
--- NOTE | 2025-03-15 09:37 | PTOTSP ---
Dysphagia Evaluation
No signs of oral/pharyngeal dysphagia or aspiration. Patient reporting signs concerning for esophageal dysphagia. See patient care note for details.
Recommend:
1. IDDSI 7 Regular, Thin
2. Medications - as best tolerated, consider 1 at at time with water
3. Intersperse liquids throughout meal and remain upright for 30 minutes as a reflux precaution
4. Gastroenterology consult
Will sign off. Please reconsult as appropriate.
[2025-03-15 10:05] LABS: Blood Urea Nitrogen 60 mg/dl (9-20); Calcium 8.7 mg/dl (8.4-10.2); Carbon Dioxide 14 mmol/L (22-30); Chloride 109 mmol/L (98-107); Estimated Creatinine Clearance 17 ml/min; Glucose 98 mg/dl (70-99); Potassium 4.3 mmol/L (3.5-5.1); Sodium 136 mmol/L (135-145); eGFR 16.98
--- NOTE | 2025-03-15 10:36 | CM ---
custodial operations manager reviewed patient's chart and met with patient and patient is hoping that he is for discharge today, manager rn case reviewed visiting nursing with patient and patient declined, home no needs when stable.
Plan; Home no needs.
--- NOTE | 2025-03-15 13:56 | W.PN.HOSP.TC ---
Today's Communication/Plan
-
Assessment / Plan
Assessment / Plan
NAD
Scleral Anicteric
MMM
No JVD
CTABL
RRR, S1/S2
Soft, NT, ND, BS+
Warm, Dry
AAOx3
Calm
# Sepsis
# Multifocal pneumonia
-Chest x-ray showing multifocal pneumonia with infrahilar airspace opacities in both lungs.
-Patient denies of history of having recurrent pneumonia. Not a smoker. No previous diagnosis of COPD/emphysema/asthma
-UA/COVID/flu negative
-Rule out bacteremia with ongoing high-grade fever episodes
- Concerned that this could be aspiration therefore discontinue Rocephin and start Unasyn along with doxycycline.
When ready for discharge can be discharged home on doxycycline Augmentin
# JUDIE on CKD 3A
-Baseline creatinine around 2.1-2.3 which was in 2023. Creatinine up to 3.6 today
-cr trending down
-avoid nephrotoxic medication
-bladdr scan ordered
None anion gap metabolic acidosis
Start 1300 mg twice daily bicarb
Repeat BMP in 5 days
Discussed with outpatient PCP/outpatient iron guardrail installer adjusting bicarb therapy after repeat BMP
#Melena
#h/o esophageal ulcer
#Iron def anemia
-reporting black stool , new
-check stool for occult blood
-on iron supplement home ,
-maintain on bid ppi
Dysphagia
Evaluated by speech therapy who did not believe this was oropharyngeal dysphagia
Recommended GI consultation was believed to be secondary to esophageal dysphagia
Cannot exclude esophageal mass pill esophagitis achalasia Schatzki rings
Therefore consult GI inpatient
# Urinary incontinence
# History of bladder diverticulum status post cystoscopy diverticulectomy
# History of BPH
- Bladder scan protocol
- Outpatient follow-up with urology
CAD status post CABG
Hyperlipidemia
Rheumatoid arthritis
Lyme's disease
Full code
DVT prophylaxis�heparin
He is adamant about going home does not want to wait for GI.
In the off chance that he does leave AMA medications have been sent to his pharmacy
Anticipated Discharge: Within 24 hours
Subjective/Interval History
-
Date of Service: March 15, 2025
Seen and examined. No new complaints. No acute overnight events.
Objective Data
-
Labs:
Laboratory Results
03/15/25
09:00
WBC 13.4 H
Hgb 11.0 L
Hct 32.8 L
Plt Count 227 D
Sodium 136
Potassium 4.3
Chloride 109 H
Carbon Dioxide 14 L*
BUN 60 H
Creatinine 3.6 H
Glucose 98
Calcium 8.7
Vital Signs:
Vital Signs
Temp Pulse Resp BP Pulse Ox
98.1 F 69 20 132/65 97
03/15/25 07:18 03/15/25 07:18 03/15/25 07:18 03/15/25 07:18 03/15/25 07:18
I&O
03/14/25 03/15/25 03/16/25
06:59 06:59 06:59
Intake Total 250 / 250
Output Total 550 / 550
Balance -300 / -300
--- NOTE | 2025-03-15 14:01 | CON.GI ---
Addendum entered and electronically signed by Kaitlynn Williamson MD 03/15/25 17:09:
I saw and examined the patient.
The CHIEF INVESTIGATOR's note was reviewed and I agree with the note.
Comment: This is a 74-year-old male with past medical history as listed below who came into the emergency room on the with symptoms of fatigue, disorientation and fall at home with cough and was noted to have fever and is currently being
treated for multifocal pneumonia and we were consulted for symptoms of dysphagia to mostly pills especially fish oil pills and some vegetables and steak. He does take quite a few supplements and also looks like was on doxycycline and Augmentin
prior to admission likely for Lyme disease. He also has remote history of esophageal ulcers noted on imaging. He currently denies any abdominal pain or chest pain and also denies any shortness of breath. He only has occasional symptoms of reflux
for which he usually takes herbal remedies. he also denies any diarrhea or constipation. He also denies any recent weight loss. He did have a colonoscopy in 2019 as listed below. He had reported dark stools could be related to the oral iron that
he was on prior to admission, he does have a history of chronic anemia also stool for occult blood is currently pending.
Assessment and plan 1. Dysphagia to mostly pills and some vegetables/roughage and also sometimes to meat/steak. Could be related to possible Schatzki's ring or esophageal stricture will also need to rule out possible neoplasm or achalasia. I
think is less likely related to EOE and currently has no symptoms of odynophagia so may be less likely pill esophagitis. Will schedule him for a esophagram tomorrow and once his respiratory status and pneumonia improves will schedule him for an
endoscopy can be done as outpatient but will be performed sooner if the esophagram is abnormal.
2. Dark stools could be related to oral iron but given anemia will also need to rule out chronic GI blood loss, stool for occult blood is currently pending. Agree with pantoprazole, currently on twice daily
3. History of tubular adenoma in 2019 and is due for a colonoscopy can likely do both endoscopy and colonoscopy as outpatient
Addendum entered and electronically signed by KIRAN Angel 03/15/25 16:20:
Will order double contrast esophagram with barium tablet.
Original Note:
Consultation
-
Date/Time Consultation Requested: 03/15/25 0900
Date/Time Consultation Performed: 03/15/25 1400
Requesting Provider: Dr. Valero
Performing Provider: Dr. Sosa/KIRAN Beck
Reason for Consultation: dysphagia
Medical History
Chief Complaint / HPI
Chief Complaint: fever
History of Present Illness:
74-year-old male past medical history of rheumatoid arthritis, Lyme disease, bladder diverticulum, questionable history of ulcer disease diagnosed when he was in his 20s by imaging, iron deficiency anemia, CAD status post CABG, BPH, bladder
diverticulum status post cystoscopy with diverticulectomy, hyperlipidemia, CKD and intermittent dysphagia for couple months who presents to the emergency room with fever, disorientation and unsteadiness on his feet. The patient was found to have
multifocal pneumonia. We are asked to evaluate for intermittent dysphagia. The patient states for the past couple months he has had intermittent dysphagia usually associated with his large fish oil pills or tough foods such as steak. He has an
outpatient appointment scheduled for April 16. The patient states that over the past couple months he will take his fish oil pill and he will notice that this will get stuck. He tries to drink a little bit of water to help this get down but
sometimes he has to force regurgitate this. Sometimes he will eat foods such as cabbage or kale and this will get lodged behind it requiring him to force regurgitate this into the sink. He states that usually this congeal together and becomes
sticky. He will also notice rare occasions of foods such as steak that if he does not chew this well it will also become lodged. His recounts an episode where she needed to hit him on the back in order to bring up his food. She states that
he did not look well for the past week. He looked like he was coughing and could not breathe well. Thus prompting his emergency room evaluation. The patient states that he was diagnosed with ulcers by imaging when he was in his 20s however has
never had an upper endoscopy before. He does not smoke. He does not drink any alcohol. He does not use any NSAIDs or aspirin. No anticoagulation. Other than episode prompting his visit he was not having any fevers prior to this. He denies any
nausea, vomiting, melena, hematochezia, odynophagia, early satiety or unintentional weight loss although his thinks that he looks thinner than what he was. He states that he always fluctuates between 146 and 155 pounds.
Past Medical History
Past Medical History: Other (Rheumatoid arthritis, Lyme disease, bladder Dr. Banegas, questionable ulcer disease diagnosed in his 20s by imaging, iron deficiency anemia, CAD status post CABG, BPH, CKD,)
Past Surgical History: Other (Appendectomy, robotic diverticulectomy bladder, CABG, TURP, robotic incisional hernia repair)
Social History
Tobacco: Non-Smoker
Alcohol: None
Drug: None
Personal:
Living: With Family
Employment: Retired
Family History
Family History: Other (Mother with history of colon cancer)
Allergies / Home Medications
Allergy/AdvReac Type Severity Reaction Status Date / Time
No Known Allergies Allergy Verified 03/13/25 20:46
�Medication �Instructions �Recorded
zinc 100 mg tablet (Zinc Chelate) 100 mg PO DAILY Supplement 09/13/20
B-complex with vitamin C 1 cap PO DAILY Supplement 11/08/20
ascorbic acid (vitamin C) 500 mg 500 mg PO DAILY Supplement 11/08/20
tablet (Vitamin C)
cholecalciferol (vitamin D3) 25 5,000 units PO DAILY Supplement 11/08/20
mcg (1,000 unit) tablet
coenzyme Q10 100 mg capsule (Co 100 mg PO DAILY Supplement 11/08/20
Q-10)
Berberin Complex 1 unit PO DAILY Supplement 08/18/24
Lcarnitine 1 unit PO DAILY Supplement 08/18/24
Multivitamin Food Source 1 unit PO DAILY Supplement 08/18/24
Pqq 1 unit PO DAILY 08/18/24
Super K 1 unit PO DAILY Supplement 08/18/24
arginine 1,000 mg-B12 16.6 1 tab PO DAILY Supplement 08/18/24
mcg-folic acid 66.6 mcg-B6 3.3 mg
tablet (L-Arginine [facility])
cranberry 1 unit PO DAILY Supplement 08/18/24
hawthorn 500 mg capsule 1 mg PO DAILY Supplement 08/18/24
magnesium gluconate 500 mg tablet 1 mg PO DAILY Supplement 08/18/24
izdwm4-qjn-uzz-other pblqk2a-llkf 750 cap PO TID 08/18/24
oil 350 mg-400 mg capsule
quercetin 500 mg capsule 1 mg PO DAILY Supplement 08/18/24
resveratrol 50 mg capsule 50 mg PO DAILY Supplement 08/18/24
selenium 50 mcg tablet 50 mcg PO DAILY Supplement 08/18/24
taurine 500 mg capsule 1,000 mg PO DAILY Supplement 08/18/24
vitamin E 1,000 unit tablet 1 tab PO DAILY Supplement 08/18/24
acetaminophen 325 mg tablet 650 mg (2 x 325 mg) PO Q6HPRN PRN 08/27/24
mild pain #14 tabs
ibuprofen 600 mg tablet 600 mg PO Q6H PRN pain #14 tabs 08/27/24
tramadol 50 mg tablet 25 mg (1/2 x 50 mg) PO Q6HPRN PRN 08/27/24
severe pain/breakthrough pain #12
tabs
amoxicillin 500 mg-potassium 1 tab PO Q12H #10 tabs 03/15/25
clavulanate 125 mg tablet
(Augmentin)
doxycycline hyclate 100 mg capsule 100 mg PO Q12 #10 caps 03/15/25
levothyroxine 50 mcg tablet 50 mcg PO HS #30 tabs 03/15/25
pantoprazole 40 mg tablet,delayed 40 mg PO BID #28 tabs 03/15/25
release
Review of Systems
-
All other systems: A 12 pt ROS was Negative except as stated above in HPI
Vital Signs
Temp Pulse Resp BP Pulse Ox
98.1 F 69 20 132/65 97
03/15/25 07:18 03/15/25 07:18 03/15/25 07:18 03/15/25 07:18 03/15/25 07:18
Physical Exam
Exam
General: No Apparent Distress
HEENT: Anicteric
Respiratory: Clear
Cardiac: Regular Rhythm
GI: Soft, Non Tender, Non Distended and Normal Bowel Sounds
Musculoskeletal: No Edema
Skin: Warm and Dry
Neuro: AO x 3
Psych: Calm
Results
WBC 13.4 10^3/uL (4.8-10.8) H 03/15/25 09:00
Hgb 11.0 g/dL (13.0-18.0) L 03/15/25 09:00
Hct 32.8 % (39.0-52.0) L 03/15/25 09:00
MCV 95.1 fL (80.0-94.0) H 03/15/25 09:00
Plt Count 227 10^3/uL (130-400) D 03/15/25 09:00
Absolute Neuts (auto) 9.7 10^3/uL (1.4-6.5) H 03/14/25 06:44
Sodium 136 mmol/L (135-145) 03/15/25 09:00
Potassium 4.3 mmol/L (3.5-5.1) 03/15/25 09:00
Chloride 109 mmol/L (98-107) H 03/15/25 09:00
Carbon Dioxide 14 mmol/L (22-30) L* 03/15/25 09:00
BUN 60 mg/dl (9-20) H 03/15/25 09:00
Creatinine 3.6 mg/dL (0.7-1.3) H 03/15/25 09:00
Calcium 8.7 mg/dl (8.4-10.2) 03/15/25 09:00
Total Bilirubin 0.5 mg/dl (0.2-1.3) 03/14/25 06:44
AST 31 U/L (17-59) 03/14/25 06:44
ALT 29 U/L (0-50) 03/14/25 06:44
Alkaline Phosphatase 44 U/L (38-126) 03/14/25 06:44
Diagnostic Image Results:
Chest x-ray 03/14/2025:
IMPRESSION:
Multifocal pneumonia.
Prior GI Procedures:
EGD: Never
Colonoscopy: 06/2019 (Do) TI normal, 5mm tubular adenoma of sigmoid colon, hypertrophied anal papillae, internal and external hemorrhoids, random bx of left colon normal, right colon with mild acute colitis. Repeat 5 yrs.
Assessment / Plan
-
74-year-old male past medical history of rheumatoid arthritis, Lyme disease, bladder diverticulum, questionable history of ulcer disease diagnosed when he was in his 20s by imaging, iron deficiency anemia, CAD status post CABG, BPH, bladder
diverticulum status post cystoscopy with diverticulectomy, hyperlipidemia, CKD and intermittent dysphagia for couple months who presents to the emergency room with fever, disorientation and unsteadiness on his feet. The patient was found to have
multifocal pneumonia. We are asked to evaluate for intermittent dysphagia.The patient states that over the past couple months he will take his fish oil pill and he will notice that this will get stuck. He tries to drink a little bit of water to
help this get down but sometimes he has to force regurgitate this. Sometimes he will eat foods such as cabbage or kale and this will get lodged behind it requiring him to force regurgitate this into the sink. He states that usually this congeal
together and becomes sticky. He will also notice rare occasions of foods such as steak that if he does not chew this well it will also become lodged. Patient currently on ceftriaxone as well as doxycycline. Has been placed on pantoprazole 40 mg
p.o. twice daily. WBC 13.4, hemoglobin 11.0 (this is baseline), hematocrit 32.8, platelets 227, MCV 95.1, MCH 31.9, platelets 227, sodium 136, potassium 4.3, chloride 109, CO2 14, BUN 60, creatinine 3.6, glucose 98, total bilirubin 0.5, AST 31, ALT
29, alk phos 44, albumin 2.9, COVID-negative. Flu negative.
Impression:
Multifocal PNA
--> fevers up to 103 (yesterday)
--> has not required supplemental oxygen
--> on Rocephin and Doxycycline.
Intermittent dysphagia to solids
--> past couple months
--> Started on PPI here
Plan:
-Will need EGD, timing to be determined.
-Continue PPI
-Discussed taking Doxycycline with plenty of water to avoid pill induced esophagitis
-Discussed chewing food well, avoiding tough meats and making sure to drink prior to pills.
-Consider UGI, esophagram as well.
-Further recommendations to be forthcoming.
-
-
Thank you for consultation and allowing me to participate in the patient's care. Please call the production administrative assistant GI physician during the after hours with any questions or concerns.
[2025-03-15 15:00] VITALS: BP 118/62
[2025-03-15] MEDS: UNASYN IV (16:13)
[2025-03-15] MEDS: SODIUM BICARBONATE 1300 MG PO ×2 (16:13→21:01)
[2025-03-15 17:16] LABS: Folate 10.6 ng/ml (2.76-20); Vitamin B12 611 pg/ml (239-931)
[2025-03-15] MEDS: PROTONIX 40 MG PO (21:00)
[2025-03-15] MEDS: HEPARIN 5000 UNITS SC (21:00)
[2025-03-15] MEDS: SYNTHROID 50 MCG PO (21:01)
[2025-03-15 23:00] VITALS: BP 111/77
--- NOTE | 2025-03-15 23:55 | PTCARENOTE ---
Addendum entered by Audi Nathan RN 03/16/25 07:21:
Pt's HR remains elevated with cardizem gtt. Sustained 130s-140s. Provider notified. Amio gtt ordered and initiated.
Addendum entered by Audi Nathan RN 03/16/25 01:27:
EKG shows afib with RVR. Provider notified. Cardizem gtt ordered and initiated.
Original Note:
Pt noted to have HR in 150s @2300 vital signs. Pt asymptomatic. RN instructed pt to bear down and rate decreased to 120s. Provider notified. EKG ordered. 1x dose IV Lopressor ordered and given.
[2025-03-16] VITALS (13 sets, daily range): BP systolic 88–131; BP diastolic 50–78
[2025-03-16] MEDS: LOPRESSOR 5 MG IV (00:02)
--- NOTE | 2025-03-16 00:13 | W.PN.UPDATE ---
Addendum entered and electronically signed by KIRAN Jones 03/16/25 05:16:
0450 cardizem gtt and bolus has not changed pt HR. Will change to amio gtt.
Original Note:
Update Note
Progress Note Update
2330 During vital sign check pt noted to have HR 150s. RN had pt bear down and rate decreased to 120s. PT asymptomatic
EKG ordered
lopressor 5mg iv ordered
0000 EKG shows afib with RVR (new)
Lopressor lowered rate to 120-130
Will start cardizem gtt
consult cardiology (known to Dr LIZZY Cruz)
[2025-03-16] MEDS: CARDIZEM 125 IV (00:59)
[2025-03-16] MEDS: UNASYN IV ×2 (03:02→16:28)
[2025-03-16] MEDS: CARDIZEM 10 MG IV (03:52)
[2025-03-16 04:16] LABS: Hematocrit 32.4 % (39.0-52.0); Hemoglobin 11.0 g/dL (13.0-18.0); Mean Corp Hgb Conc. 34.0 g/dL (33.0-37.0); Mean Corpuscular Volume 93.4 fL (80.0-94.0); Platelet Count 227 10^3/uL (130-400); Red Cell Dist. Width 13.1 % (11.5-14.5)
[2025-03-16 04:39] LABS: Blood Urea Nitrogen 63 mg/dl (9-20); Calcium 8.8 mg/dl (8.4-10.2); Carbon Dioxide 15 mmol/L (22-30); Chloride 113 mmol/L (98-107); Estimated Creatinine Clearance 17 ml/min; Glucose 113 mg/dl (70-99); Iron 28 ug/dl (49-181); Magnesium 2.1 mg/dl (1.6-2.3); Potassium 4.0 mmol/L (3.5-5.1); Sodium 139 mmol/L (135-145); eGFR 16.43
[2025-03-16 04:48] LABS: Total Iron Binding Capacity 152 ug/dl (261-462)
[2025-03-16 05:12] LABS: Ferritin 741.0 ng/ml (17.9-464.0)
[2025-03-16] MEDS: CORDARONE 103 MG IV (05:42)
[2025-03-16] MEDS: NSS 500 IV (06:02)
[2025-03-16] MEDS: CORDARONE 518 MG IV (06:06)
[2025-03-16] MEDS: SODIUM BICARBONATE 1300 MG PO (07:49)
[2025-03-16] MEDS: PROTONIX 40 MG PO ×2 (07:50→20:34)
[2025-03-16] MEDS: HEPARIN 5000 UNITS SC ×2 (07:50→20:34)
[2025-03-16] MEDS: VIBRAMYCIN 100 MG PO ×2 (07:50→20:34)
[2025-03-16] MEDS: ELIQUIS 5 MG PO (08:41)
--- NOTE | 2025-03-16 08:41 | CON.CAR ---
Addendum entered and electronically signed by Abran Mcgraw DO 03/16/25 15:19:
I saw and examined the patient.
The Administrative Services Director's note was reviewed and I agree with the note.
Comment:
Plan:
He was initially seen on 4th floor and later transferred to IVU.
He spontaneously converted to sinus rhythm in IVU.
Stop IV amiodarone and transition to amiodarone 200 mg 3 times daily to help maintain sinus rhythm.
As he is now in sinus, would hold off on starting IV heparin as he is undergoing GI evaluation including esophagram and possible endoscopy. If he has recurrent atrial fibrillation would start IV heparin.
For now given GI workup would hold Eliquis in anticipation of possible GI testing which may include endoscopy.
Check echo to evaluate left ventricular systolic function. Last echo showed preserved EF 2023.
Family was updated.
Original Note:
Consultation
Consultation Request
Date/Time Consultation Requested: 03/16/2025 at 0011
Date/Time Consultation Performed: 03/16/2025 at 0904
Requesting Provider: Dr. Mitchell Valero
Performing Provider: Dr. Mcgraw
Reason for Consultation: Newly diagnosed A-fib with RVR
Medical History
-
History of Present Illness:
Patient came to [facility] ER on Saturday night with fever and was admitted with sepsis and PNA, cardiology is now consulted for newly diagnosed A-fib with RVR. Patient was last seen by cardiology in the office 10/2023. Patient previously had CABG
09/16/2020. Since surgery patient has followed more of a naturopathic course and has been on and off statin, the last known LDL was 166 a year ago and he said he would start pravastatin but stopped it again. He has not been seen in the cardiology
office in over a year. Patient came to the ER on Saturday night with fever and reported temperature as high as 105 �F at home prior to admission. Patient was admitted with sepsis and right sided PNA. Since admission patient found to have melena and
reports of dysphagia with history of esophageal ulcer. Overnight patient noted to go into A-fib with RVR just after midnight. Patient started on Cardizem gtt without much change in HR and then became progressively hypotensive and was changed over
to amiodarone. Patient given amiodarone bolus and then amiodarone gtt starting at about 0600. Patient denies palpitations or chest pain.
PMH:
CAD s/p CABG x 2 JOLLEY to LAD; left radial to OM2 09/16/2020
CKD 3a
h/o esophageal ulcer
Hyperlipidemia, patient refuses to take statin
Past Medical History
Past Surgical History: Appendectomy and Cardiac (CABG 09/16/2020)
Social History
Tobacco: Non-Smoker
Alcohol: None
Drug: None
Personal:
Living: With Family
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
Family History
Family History: CAD and Cancer
Allergies / Home Medications
Allergy/AdvReac Type Severity Reaction Status Date / Time
No Known Allergies Allergy Verified 03/13/25 20:46
�Medication �Instructions �Recorded �Confirmed �Type
zinc 100 mg tablet (Zinc Chelate) 100 mg PO DAILY Supplement 09/13/20 08/27/24 History
B-complex with vitamin C 1 cap PO DAILY Supplement 11/08/20 08/27/24 History
ascorbic acid (vitamin C) 500 mg 500 mg PO DAILY Supplement 11/08/20 08/27/24 History
tablet (Vitamin C)
cholecalciferol (vitamin D3) 25 5,000 units PO DAILY Supplement 11/08/20 08/27/24 History
mcg (1,000 unit) tablet
coenzyme Q10 100 mg capsule (Co 100 mg PO DAILY Supplement 11/08/20 08/27/24 History
Q-10)
Berberin Complex 1 unit PO DAILY Supplement 08/18/24 08/27/24 History
Lcarnitine 1 unit PO DAILY Supplement 08/18/24 08/27/24 History
Multivitamin Food Source 1 unit PO DAILY Supplement 08/18/24 08/27/24 History
Pqq 1 unit PO DAILY 08/18/24 08/27/24 History
Super K 1 unit PO DAILY Supplement 08/18/24 08/27/24 History
arginine 1,000 mg-B12 16.6 1 tab PO DAILY Supplement 08/18/24 08/27/24 History
mcg-folic acid 66.6 mcg-B6 3.3 mg
tablet (L-Arginine [facility])
cranberry 1 unit PO DAILY Supplement 08/18/24 08/27/24 History
hawthorn 500 mg capsule 1 mg PO DAILY Supplement 08/18/24 08/27/24 History
magnesium gluconate 500 mg tablet 1 mg PO DAILY Supplement 08/18/24 08/27/24 History
-puw-tax-other [id number] 750 cap PO TID 08/18/24 08/27/24 History
oil 350 mg-400 mg capsule
quercetin 500 mg capsule 1 mg PO DAILY Supplement 08/18/24 08/27/24 History
resveratrol 50 mg capsule 50 mg PO DAILY Supplement 08/18/24 08/27/24 History
selenium 50 mcg tablet 50 mcg PO DAILY Supplement 08/18/24 08/27/24 History
taurine 500 mg capsule 1,000 mg PO DAILY Supplement 08/18/24 08/27/24 History
vitamin E 1,000 unit tablet 1 tab PO DAILY Supplement 08/18/24 08/27/24 History
acetaminophen 325 mg tablet 650 mg (2 x 325 mg) PO Q6HPRN PRN 08/27/24 Rx
mild pain #14 tabs
ibuprofen 600 mg tablet 600 mg PO Q6H PRN pain #14 tabs 08/27/24 Rx
tramadol 50 mg tablet 25 mg (1/2 x 50 mg) PO Q6HPRN PRN 08/27/24 Rx
severe pain/breakthrough pain #12
tabs
amoxicillin 500 mg-potassium 1 tab PO Q12H #10 tabs 03/15/25 Rx
clavulanate 125 mg tablet
(Augmentin)
doxycycline hyclate 100 mg capsule 100 mg PO Q12 #10 caps 03/15/25 Rx
levothyroxine 50 mcg tablet 50 mcg PO HS #30 tabs 03/15/25 Rx
pantoprazole 40 mg tablet,delayed 40 mg PO BID #28 tabs 03/15/25 Rx
release
sodium bicarbonate 650 mg tablet 1,300 mg (2 x 650 mg) PO BID #120 03/15/25 Rx
tabs
Review of Systems
-
History Source: Patient
All other systems: Negative unless noted
Physical Exam
Vital Signs
Temp Pulse Resp BP Pulse Ox
97.7 F 121 16 101/55 92
03/16/25 07:54 03/16/25 07:54 03/16/25 07:54 03/16/25 07:54 03/16/25 07:54
GEN: NAD. AAOx3
HEENT: EOMI, MMM
LUNGS: RA. No audible wheeze
CV: Afib with RVR on tele. Irreg irreg, S1/S2, no murmur
ABD: ND
EXT: No clubbing, cyanosis, lesions or edema B/L
NEURO: Gross non-focal
SKIN: Warm, dry and pink. No rash
Lab Results
03/16/25 04:00
03/16/25 04:00
Impression / Plan
-
PCP: Dr. Raymond Mcfarland
Cardiology: Dr. Silvana Qureshi
Impression:
Admitted with fever, sepsis and PNA 03/13/25
Sepsis
Right-sided PNA
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
Hypotension
CAD s/p CABG x 2 JOLLEY to LAD; left radial to OM2 09/16/2020
JUDIE baseline Cre 2.1 on CKD 3a
Melena
Dysphagia with h/o esophageal ulcer
Hyperlipidemia, patient refuses to take statin
Echo 09/14/20: LVEF 65%, no WMA or significant valvular or structural disease
Echo 01/10/24: EF 52%, no WMA, moderate concentric LVH, stage I diastolic dysfunction, normal RV size and function, mild MR, mild TR with PAP 30 mmHg
Plan:
-Patient came to [facility] ER on Saturday night with fever and was admitted with sepsis and PNA, cardiology is now consulted for newly diagnosed A-fib with RVR. Patient was last seen by cardiology in the office 10/2023. Patient previously had CABG
09/16/2020. Since surgery patient has followed more of a naturopathic course and has been on and off statin, the last known LDL was 166 a year ago and he said he would start pravastatin but stopped it again. He has not been seen in the cardiology
office in over a year. Patient came to the ER on Saturday night with fever and reported temperature as high as 105 �F at home prior to admission. Patient was admitted with sepsis and right sided PNA. Since admission patient found to have melena and
reports of dysphagia with history of esophageal ulcer. Overnight patient noted to go into A-fib with RVR just after midnight. Patient started on Cardizem gtt without much change in HR and then became progressively hypotensive and was changed over
to amiodarone. Patient given amiodarone bolus and then amiodarone gtt starting at about 0600. Patient denies palpitations or chest pain.
-ECG reviewed by me is A-fib with RVR
-Talked with patient and then later called and talked with his , Serene, and explained overnight events and outlined plan for transfer to the IVU. I called and talked to IVU and facilitated transfer to room 2257 for closer monitoring on
amiodarone gtt and we will attempt to add back Cardizem gtt for improved heart rate control
-Will start heparin gtt, orders placed by me
-Follow Hgb, has been stable from 10.9-11.9 thus far this admission
-GI is following for dysphagia and plans for esophagram and then later upper endoscopy for his symptoms and history of esophageal ulcer
-Last echo was 01/10/2024, will repeat now once HR is under better control. EF previously preserved, but evidence of moderate concentric LVH
-Suspect hypotension is related to A-fib with RVR
-Called and updated patient's by phone for 7 minutes and 6 seconds this morning.
--- NOTE | 2025-03-16 10:01 | CM ---
Chart reviewed and discharge is on hold for now, geriatric case manager will follow with patient progress plan is to home when stable.
Plan; Home when stable.
--- NOTE | 2025-03-16 10:14 | W.PN.GI.CBS2 ---
Addendum entered and electronically signed by Afsaneh Freire MD 03/16/25 12:33:
I saw and examined the patient.
The [employer] or PA's note was reviewed and I agree with the note.
Comment:
Pt with pneumonia, new onset afib but feels ok
oriented
impression
dysphagia
plan:
esophagram when stable likely tomorrow
Original Note:
Today's Communication / Plan
-
Esophagram planned for tomorrow
Assessment / Plan
-
74-year-old male past medical history of rheumatoid arthritis, Lyme disease, bladder diverticulum, questionable history of ulcer disease diagnosed when he was in his 20s by imaging, iron deficiency anemia, CAD status post CABG, BPH, bladder
diverticulum status post cystoscopy with diverticulectomy, hyperlipidemia, CKD and intermittent dysphagia for couple months who presents to the emergency room with fever, disorientation and unsteadiness on his feet. The patient was found to have
multifocal pneumonia. We are asked to evaluate for intermittent dysphagia.The patient states that over the past couple months he will take his fish oil pill and he will notice that this will get stuck. He tries to drink a little bit of water to
help this get down but sometimes he has to force regurgitate this. Sometimes he will eat foods such as cabbage or kale and this will get lodged behind it requiring him to force regurgitate this into the sink. He states that usually this congeal
together and becomes sticky. He will also notice rare occasions of foods such as steak that if he does not chew this well it will also become lodged. Patient currently on ceftriaxone as well as doxycycline. Has been placed on pantoprazole 40 mg
p.o. twice daily. WBC 13.4, hemoglobin 11.0 (this is baseline), hematocrit 32.8, platelets 227, MCV 95.1, MCH 31.9, platelets 227, sodium 136, potassium 4.3, chloride 109, CO2 14, BUN 60, creatinine 3.6, glucose 98, total bilirubin 0.5, AST 31, ALT
29, alk phos 44, albumin 2.9, COVID-negative. Flu negative.
Impression:
Multifocal PNA
--> Afebrile since 03/14/2025
--> has not required supplemental oxygen
--> On Unasyn and Doxycycline.
Intermittent dysphagia to solids
--> past couple months
--> Started on pantoprazole 40 mg p.o. twice daily
New onset A-fib with RVR
--> Cardiology consult pending, tried on Cardizem drip, now on amiodarone drip
Anemia
--> Iron deficiency and likely anemia of chronic disease from CKD
Plan:
-Plan on esophagram, double contrast with barium pill tomorrow
-Continue PPI
-Discussed taking Doxycycline with plenty of water to avoid pill induced esophagitis
-Discussed chewing food well, avoiding tough meats and making sure to drink prior to pills.
-Further recommendations to be forthcoming.
- Depending on esophagram results may need EGD while inpatient
- History of tubular adenoma in 2019 is due for colonoscopy.
Subjective
Subjective
Date of Service: March 16, 2025
Plans for esophagram this morning however patient ate. Patient also went into A-fib with RVR (new onset) patient was asymptomatic. Awaiting cardiology consult. Will plan for esophagram tomorrow. Hemoglobin stable at 11.0, iron 28, TIBC 152,
percent saturation 18, ferritin 741. B12 611, folate 10.6
Objective
Data Reviewed
Laboratory Data:
Laboratory Results
03/16/25 04:00
03/16/25 04:00
Laboratory Results
Magnesium 2.1 mg/dl (1.6-2.3) 03/16/25 04:00
Total Bilirubin 0.5 mg/dl (0.2-1.3) 03/14/25 06:44
AST 31 U/L (17-59) 06/29/25 06:44
ALT 29 U/L (0-50) 03/14/25 06:44
Alkaline Phosphatase 44 U/L (38-126) 03/14/25 06:44
Vital Signs and I&O:
Vital Signs
Temp Pulse Resp BP Pulse Ox
97.7 F 121 16 101/55 92
03/16/25 07:54 03/16/25 07:54 03/16/25 07:54 03/16/25 07:54 03/16/25 07:54
I&O
03/15/25 03/16/25 03/17/25
06:59 06:59 06:59
Intake Total 250 / 250
Output Total 550 / 550
Balance -300 / -300
Physical Exam
Physical Exam
HEENT: Anicteric
Cardiology: Irregular Rate/Rhythm (Tachycardic)
Pulmonary: Clear
GI: Soft, Non Distended, Non Tender and Normal Bowel Sounds
Extremities: No Edema
Neuro: Non Focal
[2025-03-16] MEDS: SODIUM BICARBONATE 1150 MEQ IV ×2 (10:19→20:59)
--- NOTE | 2025-03-16 12:06 | PTCARENOTE ---
Received pt in beginning of shift in rapid Afib rates sustaining 140s. Pt on amio gtt initiated at 0600, remains Afib 140s. Cardiology in to see pt, orders to be transferred to IVU. Pt sent to IVU at 1145.
--- NOTE | 2025-03-16 13:11 | W.PN.UPDATE ---
Update Note
Progress Note Update
Patient spontaneously converted to SR upon transfer to IVU. Amiodarone gtt stopped. Cardizem gtt stopped. Will start amiodarone 200 mg TID to help maintain SR. Check ECG in AM. Heparin gtt stopped. Heparin SQ restarted for DVT prophylaxis.
Patient was given a dose of Eliquis 5 mg this morning, but placed on hold for possible upper endoscopy. If patient recurs with atrial arrhythmia we can restart heparin gtt while we wait for GI procedures to be finished. Patient should eventually
go home on OAC with Eliquis 5 mg BID (age 74, 67 kg).
[2025-03-16] MEDS: PACERONE 200 MG PO ×2 (16:28→22:34)
--- NOTE | 2025-03-16 17:27 | W.PN.HOSP.TC ---
Today's Communication/Plan
-
Assessment / Plan
Assessment / Plan
NAD
Scleral Anicteric
MMM
No JVD
CTABL
RRR, S1/S2
Soft, NT, ND, BS+
Warm, Dry
AAOx3
Calm
# Sepsis
# Multifocal pneumonia
-Chest x-ray showing multifocal pneumonia with infrahilar airspace opacities in both lungs.
-Patient denies of history of having recurrent pneumonia. Not a smoker. No previous diagnosis of COPD/emphysema/asthma
-UA/COVID/flu negative
-Rule out bacteremia with ongoing high-grade fever episodes
- Concerned that this could be aspiration therefore discontinue Rocephin and start Unasyn along with doxycycline.
When ready for discharge can be discharged home on doxycycline Augmentin
Paroxysmal A-fib RVR, new back in sinus rhythm
IV amiodarone and Cardizem drip stopped
Started on Amio 200 mg 3 times daily to maintain sinus rhythm
Hold Eliquis, start heparin drip in anticipation of possible GI esophagogram/endoscopy
2D echocardiogram ordered
TSH ordered
# JUDIE on CKD 3A
-Baseline creatinine around 2.1-2.3 which was in 2023. Creatinine up to 3.6 today
-cr trending down
-avoid nephrotoxic medication
-bladdr scan ordered
None anion gap metabolic acidosis
Bicarb drip
#Melena
#h/o esophageal ulcer
#Iron def anemia
-reporting black stool , new
-check stool for occult blood
-on iron supplement home ,
-maintain on bid ppi
Dysphagia
Evaluated by speech therapy who did not believe this was oropharyngeal dysphagia
Recommended GI consultation was believed to be secondary to esophageal dysphagia
Cannot exclude esophageal mass pill esophagitis achalasia Schatzki rings
Therefore consult GI inpatient
Planning for esophagram/upper endoscopy
# Urinary incontinence
# History of bladder diverticulum status post cystoscopy diverticulectomy
# History of BPH
- Bladder scan protocol
- Outpatient follow-up with urology
CAD status post CABG
Hyperlipidemia
Rheumatoid arthritis
Lyme's disease
Anticipated Discharge: > 48 hours
Subjective/Interval History
-
Date of Service: March 16, 2025
Seen and examined. No new complaints.
Overnight went into atrial fibrillation RVR with a rate sustaining in the 150s
Started on Cardizem drip amnio drip however remained therefore transferred here IVU per cardiology recommendation
Objective Data
-
Labs:
Laboratory Results
03/16/25
11:56
APTT Cancelled
Vital Signs:
Vital Signs
Temp Pulse Resp BP Pulse Ox
97.7 F 77 16 116/60 97
03/16/25 16:01 03/16/25 16:28 03/16/25 16:01 03/16/25 16:28 03/16/25 16:01
I&O
03/15/25 03/16/25 03/17/25
06:59 06:59 06:59
Intake Total 250 / 250
Output Total 550 / 550
Balance -300 / -300
--- NOTE | 2025-03-16 19:42 | PTCARENOTE ---
~1045: Attempt to call [facility] to receive report, no one answered. Will call back.
~1100: handoff report received from [facility] RN via telephone
~1145: Patient arrived to unit via bed with junior staff accountant from [facility]. Amio and bicarb infusing per order, however when looking at monitor, patient appears to have converted to NSR. Closer interrogation appears that patient was in NSR upon arrival to
unit. Informed Kennedi Jacobson PA-C that patient converted, per Kennedi, stop amio gtt and disregard previously ordered medications (Diltiazem and Heparin gtts).
Pt AOx4, NSR 70s on tele, RA. L mid to lowr lobe fine crackles noted. Pt denies pain at this time. Pt OOB in chait with at bedside. All needs met at this time, call locke within reach.
~9808-9721: Patient and family at bedside. sodium bicarb gtt infusing per order. Patient ambulated back to bed with standby assistance for bedside ECHO.
~[id number]: Abx hung per order. PIV removed from amio infusion. Pt OOB in chair. All needs met at this time, call locke within reach.
~3700-3531: Pt in stable condition at this time. VSS. Sodium bicarb gtt infusing per order. All needs met at this time, call locke within reach. Handoff report given to nightshift RN.
--- NOTE | 2025-03-16 21:45 | PTCARENOTE ---
Received pt at change of shift resting in bed. SR on tele, HR in the 60's. pt denies any chest pain or SOB. New Bicarb gtt hung at 2100 and infusing at 100 mL/hr per order. Educated pt on NPO status after midnight, verbalized understanding. pt
encouraged to call staffing assistant for assistance ambulating. pt calls appropriately. Call locke within reach.
[2025-03-16] MEDS: SYNTHROID 50 MCG PO (22:34)
[2025-03-17] VITALS (7 sets, daily range): BP systolic 113–130; BP diastolic 55–72
[2025-03-17] MEDS: UNASYN IV ×2 (04:56→16:58)
[2025-03-17 05:21] LABS: Hematocrit 27.6 % (39.0-52.0); Hemoglobin 9.7 g/dL (13.0-18.0); Mean Corp Hgb Conc. 35.1 g/dL (33.0-37.0); Mean Corpuscular Volume 91.1 fL (80.0-94.0); Platelet Count 283 10^3/uL (130-400); Red Cell Dist. Width 13.0 % (11.5-14.5)
[2025-03-17 05:54] LABS: Blood Urea Nitrogen 47 mg/dl (9-20); Calcium 7.4 mg/dl (8.4-10.2); Carbon Dioxide 19 mmol/L (22-30); Chloride 114 mmol/L (98-107); Estimated Creatinine Clearance 21 ml/min; Glucose 111 mg/dl (70-99); Potassium 3.0 mmol/L (3.5-5.1); Sodium 141 mmol/L (135-145); eGFR 22.01
--- NOTE | 2025-03-17 06:21 | W.PN.UPDATE ---
Update Note
Progress Note Update
AM labs, K+ 3.0, ordered KCl rider 40 meq IV x 1 as patient is currently NPO.
[2025-03-17] MEDS: KCL 270 MEQ IV (06:44)
[2025-03-17] MEDS: SODIUM BICARBONATE 1150 MEQ IV (10:13)
[2025-03-17] MEDS: HEPARIN 5000 UNITS SC (10:14)
[2025-03-17] MEDS: VIBRAMYCIN 100 MG PO ×2 (10:14→19:44)
[2025-03-17] MEDS: PROTONIX 40 MG PO ×2 (10:15→19:44)
[2025-03-17] MEDS: PACERONE 200 MG PO ×3 (10:15→22:21)
--- NOTE | 2025-03-17 10:42 | PTCARENOTE ---
Patient sent for his esophagram this morning. Now back in his room, given PO meds with a sip of water. Waiting to hear back from GI if the patient is ok to resume diet or if EGD is indicated. IV fluids infusing at 100ml/hr as ordered along with K+
rider.
--- NOTE | 2025-03-17 11:27 | W.PN.GI.CBS2 ---
Today's Communication / Plan
-
PPI bid
Assessment / Plan
-
Pt with recurrent aspiration pneumonia, Afib with UGI that showed medium to large hiatal hernia and reflux
Impression:
hiatal hernia
gerd
afib
plan:
Pantoprazole 40 twice a day as outpatient
discussed at length both dietary and lifestyle modifications for gerd
I do think his reflux may be contributing to both his afib and pneumonia and will need an outpatient esophagel mano with ph study
he is also due for an elective colonoscopy
will make outpatient appointment he knows our office will call
will sign off call with questions
Total Time Spent with Patient (in minutes):
Subjective
Subjective
Date of Service: March 17, 2025
Pt w/o issues this morning, hungry
Objective
Data Reviewed
Laboratory Data:
Laboratory Results
03/17/25 04:58
03/17/25 04:58
Laboratory Results
APTT Cancelled 03/16/25 11:56
Magnesium 2.1 mg/dl (1.6-2.3) 03/16/25 04:00
Total Bilirubin 0.5 mg/dl (0.2-1.3) 03/14/25 06:44
AST 31 U/L (17-59) 03/14/25 06:44
ALT 29 U/L (0-50) 03/14/25 06:44
Alkaline Phosphatase 44 U/L (38-126) 03/14/25 06:44
Vital Signs and I&O:
Vital Signs
Temp Pulse Resp BP Pulse Ox
97.7 F 72 18 113/59 96
03/17/25 11:16 03/17/25 11:16 03/17/25 11:16 03/17/25 08:13 03/17/25 11:16
I&O
03/16/25 03/17/2525
06:59 06:59 06:59
Intake Total 1560 / 1560
Output Total 300 / 300
Balance 1260 / 1260
Physical Exam
Physical Exam
GI: Soft and Non Distended
--- NOTE | 2025-03-17 13:35 | CM ---
Chart reviewed. Patient is independent of ADLS, lives with his in a split level, 3 STH, 12 NUZHAT, 0 DME. Plan is for the patient to return home. CM to follow
--- NOTE | 2025-03-17 14:11 | W.PN.HOSP.TC ---
Addendum entered and electronically signed by Mitchell Valero MD 03/20/25 12:52:
Hypokalemia
Original Note:
Today's Communication/Plan
-
Assessment / Plan
Assessment / Plan
NAD
Scleral Anicteric
MMM
No JVD
CTABL
RRR, S1/S2
Soft, NT, ND, BS+
Warm, Dry
AAOx3
Calm
# Sepsis
# Multifocal pneumonia
-Chest x-ray showing multifocal pneumonia with infrahilar airspace opacities in both lungs.
-Patient denies of history of having recurrent pneumonia. Not a smoker. No previous diagnosis of COPD/emphysema/asthma
-UA/COVID/flu negative
-Rule out bacteremia with ongoing high-grade fever episodes
- Concerned that this could be aspiration therefore discontinue Rocephin and start Unasyn along with doxycycline.
When ready for discharge can be discharged home on doxycycline Augmentin
Paroxysmal A-fib RVR, new back in sinus rhythm
IV amiodarone and Cardizem drip stopped
Started on Amio 200 mg 3 times daily to maintain sinus rhythm
Hold Eliquis, start heparin drip in anticipation of possible GI esophagogram/endoscopy
2D echocardiogram ordered
TSH ordered
# JUDIE on CKD 3A
-Baseline creatinine around 2.1-2.3 which was in 2023. Creatinine up to 3.6 today
-cr trending down
-avoid nephrotoxic medication
-bladdr scan ordered
None anion gap metabolic acidosis
Bicarb drip
#Melena
#h/o esophageal ulcer
#Iron def anemia
-reporting black stool , new
-check stool for occult blood
-on iron supplement home ,
-maintain on bid ppi
Hiatal Hernia
UGI that showed medium to large hiatal hernia and reflux
PPI oral bid
Ougtpatient GI follow up
# Urinary incontinence
# History of bladder diverticulum status post cystoscopy diverticulectomy
# History of BPH
- Bladder scan protocol
- Outpatient follow-up with urology
CAD status post CABG
Hyperlipidemia
Rheumatoid arthritis
Lyme's disease
Anticipated Discharge: 24 - 48 hours
Subjective/Interval History
-
Date of Service: March 17, 2025
seen and examined. no new complaints. no acute ovenright events
Objective Data
-
Labs:
Laboratory Results
03/17/25
04:58
WBC 7.9
Hgb 9.7 L
Hct 27.6 L
Plt Count 283 D
Sodium 141
Potassium 3.0 L
Chloride 114 H
Carbon Dioxide 19 L
BUN 47 H
Creatinine 2.9 H
Glucose 111 H
Calcium 7.4 L
Vital Signs:
Vital Signs
Temp Pulse Resp BP Pulse Ox
97.7 F 72 18 130/62 96
03/17/25 11:16 03/17/25 11:18 03/17/25 11:16 03/17/25 11:18 03/17/25 11:16
I&O
03/16/25 03/17/25 03/18/25
06:59 06:59 06:59
Intake Total 1560 / 1560 270 / 270
Output Total 300 / 300
Balance 1260 / 1260 270 / 270
--- NOTE | 2025-03-17 14:17 | W.PN.CARDCBS ---
Addendum entered and electronically signed by Anthony Morrell MD 03/17/25 16:21:
I saw and examined the patient.
The Flight Operations Engineer's note was reviewed and I agree with the note.
Comment: Briefly, 74-year-old man with past medical history of CAD status post CABG presenting with fever and found to have sepsis secondary to pneumonia. Cardiology was consulted for atrial fibrillation with rapid ventricular response which is a
new diagnosis for him. Thankfully patient spontaneously converted yesterday morning and has been maintaining sinus rhythm.
Would continue amiodarone 200 mg twice daily x 1 month and then decrease to 200 mg daily
New to Eliquis for risk reduction of cardioembolic stroke, would discharge on 5 mg twice daily
Echo here with overall preserved LV function and no high-grade valve disease
Stable cardiac status, we will sign off, please recall as needed
Outpatient follow-up to be arranged
Original Note:
Today's Communication / Plan
-
Start Eliquis tonight
Cont amiodarone 200 mg BID for 1 month then once daily thereafter
Impression / Plan
-
PCP: Dr. Raymond Mcfarland
Cardiology: Dr. Silvana Qureshi
Impression:
Admitted with fever, sepsis and PNA 03/13/25
Sepsis
Right-sided PNA
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
spontaneourlsy converted to SR 03/16/25
Hypotension
CAD s/p CABG x 2 JOLLEY to LAD; left radial to OM2 09/16/2020
JUDIE baseline Cre 2.1 on CKD 3a
Melena
Dysphagia with h/o esophageal ulcer
Hyperlipidemia, patient refuses to take statin
Echo 09/14/20: LVEF 65%, no WMA or significant valvular or structural disease
Echo 01/10/24: EF 52%, no WMA, moderate concentric LVH, stage I diastolic dysfunction, normal RV size and function, mild MR, mild TR with PAP 30 mmHg
Echo 03/16/2025: EF 50 to 55%, possible basal inferior hypokinesis, moderate concentric LVH, mild MR
Plan:
-Telemetry reviewed by me and patient remains in SR on 03/17/2025. ECG reviewed by me on 03/17/2025 and the QTc is 499 ms
-Plan is for rhythm control with the addition of amiodarone 200 mg TID, patient has received day 600 mg dose as of 03/17/2025. Plan is for amiodarone 200 mg BID for 1 month then 200 mg once daily thereafter
-Atrial fibrillation is a new diagnosis. Patient was not taking OAC prior to admission. Patient was given a single dose of Eliquis 5 mg on the morning of 03/16/2025. Patient is recommended OAC at time of discharge, his [id number] score is 3. Will
start Eliquis 5 mg BID (age 74, Cre 2.9, wt 67.18 kg) 03/17/25 PM as no additional GI procedures planned, Eliquis orders placed by me.
-GI is following for dysphagia and esophagram showed a medium to large hiatal hernia and reflux so their plan at this time is dietary and lifestyle modification along with the addition of pantoprazole. GI thinks reflux may be contributing to A-fib
and PNA and they recommend an outpatient esophageal mano with pH study
-Will arrange for cardiology follow-up
HPI: Patient came to [facility] ER on Saturday night with fever and was admitted with sepsis and PNA, cardiology is now consulted for newly diagnosed A-fib with RVR. Patient was last seen by cardiology in the office 10/2023. Patient previously had CABG
09/16/2020. Since surgery patient has followed more of a naturopathic course and has been on and off statin, the last known LDL was 166 a year ago and he said he would start pravastatin but stopped it again. He has not been seen in the cardiology
office in over a year. Patient came to the ER on Saturday night with fever and reported temperature as high as 105 �F at home prior to admission. Patient was admitted with sepsis and right sided PNA. Since admission patient found to have melena and
reports of dysphagia with history of esophageal ulcer. Overnight patient noted to go into A-fib with RVR just after midnight. Patient started on Cardizem gtt without much change in HR and then became progressively hypotensive and was changed over
to amiodarone. Patient given amiodarone bolus and then amiodarone gtt starting at about 0600. Patient denies palpitations or chest pain.
Progress Note - Brush Head Maker
Subjective
Date of Service: March 17, 2025
He feels well, they told him he has a hiatal hernia
Objective
Labs:
03/17/25 04:58
03/17/25 04:58
Labs
Hgb 9.7 g/dL (13.0-18.0) L 03/17/25 04:58
Hct 27.6 % (39.0-52.0) L 03/17/25 04:58
Plt Count 283 10^3/uL (130-400) D 03/17/25 04:58
APTT Cancelled 03/16/25 11:56
Sodium 141 mmol/L (135-145) 03/17/25 04:58
Potassium 3.0 mmol/L (3.5-5.1) L 03/17/25 04:58
BUN 47 mg/dl (9-20) H 03/17/25 04:58
Creatinine 2.9 mg/dL (0.7-1.3) H 03/17/25 04:58
Glucose 111 mg/dl (70-99) H 03/17/25 04:58
Vital Signs and I&O:
Vital Signs
Temp Pulse Resp BP Pulse Ox
97.7 F 72 18 130/62 96
03/17/25 11:16 03/17/25 11:18 03/17/25 11:16 03/17/25 11:18 03/17/25 11:16
Vital Signs
Temp Pulse Resp BP Pulse Ox
97.7 F 72 18 130/62 96
03/17/25 11:16 03/17/25 11:18 03/17/25 11:16 03/17/25 11:18 03/17/25 11:16
Intake & Output
03/15/25 03/16/25 03/17/25 03/18/25
06:59 06:59 06:59 06:59
Intake Total 250 / 250 1560 / 1560 270 / 270
Output Total 550 / 550 300 / 300
Balance -300 / -300 1260 / 1260 270 / 270
Physical Exam
Physical Exam
GEN: NAD. AAOx3
LUNGS: RA. No audible wheeze
CV: SR on tele.
EXT: No edema B/L
SKIN: No rash
--- NOTE | 2025-03-17 14:23 | W.CHA2DS2VAS ---
[id number] Score
Score
Age in Years (65=0, 65-74=1, >/=75=2): 65-74
Sex (Female=+1): Male
Congestive Heart Failure History (Yes=+1): No
Hypertension History (Yes=+1): Yes
Stroke/TIA/Thromboembolism History (Yes=+2): No
Vascular Disease History (Yes=+1): Yes
Diabetes Mellitus (Yes=+1): No
Score >/=2 is otherwise an anticoagulation candidate: 3
[2025-03-17] MEDS: FLUSH (NSS) 1 FLUSH IV (16:58)
[2025-03-17] MEDS: ELIQUIS 5 MG PO (19:44)
--- NOTE | 2025-03-17 22:00 | PTCARENOTE ---
Received pt at change of shift resting in bed. SR on the monitor, HR in the 60's. pt denies any chest pain or SOB. Bicarb gtt infusing at 100 mL/hr. Fall risk precautions maintained. pt encouraged to call therapeutic support staff for assistance ambulating. pt calls
appropriately. Call locke within reach.
[2025-03-17] MEDS: SYNTHROID 50 MCG PO (22:21)
[2025-03-18] MEDS: UNASYN IV (04:02)
[2025-03-18 04:04] VITALS: BP 128/65
[2025-03-18 04:21] LABS: Hematocrit 27.7 % (39.0-52.0); Hemoglobin 9.4 g/dL (13.0-18.0); Mean Corp Hgb Conc. 33.9 g/dL (33.0-37.0); Mean Corpuscular Volume 92.3 fL (80.0-94.0); Platelet Count 310 10^3/uL (130-400); Red Cell Dist. Width 12.8 % (11.5-14.5)
[2025-03-18 04:51] LABS: Blood Urea Nitrogen 44 mg/dl (9-20); Calcium 8.5 mg/dl (8.4-10.2); Carbon Dioxide 30 mmol/L (22-30); Chloride 111 mmol/L (98-107); Estimated Creatinine Clearance 22 ml/min; Glucose 105 mg/dl (70-99); Potassium 3.6 mmol/L (3.5-5.1); Sodium 142 mmol/L (135-145); eGFR 22.96
[2025-03-18 07:55] VITALS: BP 129/60
[2025-03-18] MEDS: PACERONE 200 MG PO (08:47)
[2025-03-18] MEDS: PROTONIX 40 MG PO (08:47)
[2025-03-18] MEDS: VIBRAMYCIN 100 MG PO (08:47)
[2025-03-18] MEDS: ELIQUIS 5 MG PO (08:47)
--- NOTE | 2025-03-18 09:33 | CM ---
Addendum entered by Aniyah Burciaga RN 03/18/25 10:30:
Patient is agreeable to cost.
Original Note:
Pricing on [employer] through the patient's PP, [employer] ID# [id number], is $116 for a 30 day supply. I will place a free 30 day coupon in the patients red discharge folder.
--- NOTE | 2025-03-18 10:30 | CM ---
Chart reviewed. Patient is independent of ADLS, lives with his in a split level, 3 STH, 12 [address], 0 DME. Plan is for the patient to return home. CM to follow
[2025-03-18 11:03] VITALS: BP 146/67
[2025-03-18 11:04] VITALS: BP 146/67
--- NOTE | 2025-03-18 11:05 | PN.CDI ---
CDI
- -
CDI:
Physician Documentation Request
Admit Date: 03/13/25 23:39
Dear Doctor,
Please review the following and provide your response in the progress notes.
Clinical Indicators:
Pt admitted with Sepsis / PNA suspected aspiration pneumonia
Documented per update note 03/17,' AM labs, K+ 3.0, ordered KCl rider 40 meq IV x 1 as patient is currently NPO...'
Based on the above, could you clarify in the progress notes, the appropriate diagnosis, if significant, that supports the above abnormalities and additional evaluation, monitoring and/or treatment rendered:
Hypokalemia
Abnormal lab value only
Other ( please specify)
Use of terms such as suspected, likely, concern for, or probable (associated with a specific diagnosis that is being evaluated, monitored, or treated as if it exists) are acceptable and can be coded in the inpatient setting, when documented at the
time of discharge.
Thank you,
Ute Moody RN
CDI Specialist
[employer] Text
Please use your independent medical judgment in providing your response.
--- NOTE | 2025-03-18 12:54 | PTCARENOTE ---
D/C instructions given to patient and , both verbalizes understanding. INT D/C'd, telemetry D/C'd, personal belongings packed and sent home with patient. D/C to home via wc accompanied by staff.
--- NOTE | 2025-03-18 14:20 | W.DCSUMMARY ---
Discharge Summary
Discharge Data
Date of Admission: 03/13/25
Date of Discharge: 03/18/25
-
Pending Results: No
Hospital Course
74-year-old male past medical history of CAD status post CABG, BPH, bladder diverticulum status post cystoscopy with diverticulectomy, hyperlipidemia, rheumatoid arthritis, esophageal ulcers, Lyme's disease, CKD 3A, iron deficiency anemia
Presents with productive cough fatigue fever for for a few days. Was diagnosed with sepsis likely source of chest x-ray was suggestive of a right-sided midlung pneumonia. Culture data thus far negative. Influenza COVID-negative. Continue
Rocephin and doxycycline. However concern for potential aspiration therefore Rocephin was transitioned to Unasyn. Completed antibiotic course in the hospital.
There was concern for dysphagia evaluated by speech therapy did not believe this was oropharyngeal and believe it was more esophageal. Differential diagnosis for esophageal dysphagia could be achalasia, Schatzki rings, esophagitis/pill esophagitis.
Therefore EGD is currently indicated and therefore GI was consulted. For which an esophagram was completed that demonstrated a large nonsliding hiatal hernia. GI evaluated recommended starting Protonix outpatient GI follow-up for eventual EGD
colonoscopy.
Also, should be noted renal function continues to worsen. Creat up to 3.6. Was started on a bicarb drip with improvement in renal function to 2.8 along with resolution of metabolic acidosis.
- Will discharge home with sodium bicarb 650 mg twice a day with plans to start if repeat BMP shows metabolic acidosis as sodium bicarbonate has been shown to improve morbidity and mortality by reducing/slowing progression of CKD
Hospitalization was further complicated by a brief run of atrial fibrillation. Seen by cardiology. Started on rate control and antiarrhythmics with iv amio drip that was eventually transitioned to oral amio. Additionally, started on eliquis for
stroke prevention.
Will need outpatient cardiology, GI and nephrology follow up along wit PCP.
If symptoms return or worsen please return to the hospital or call pcp for next steps.
Seen and examined on the day of discharge 03/18. No new complaints. No acute overnight events.
Renal function improved. Discontinue IV bicarbonate drip.
NAD
Scleral Anicteric
MMM
No JVD
CTABL
RRR, S1/S2
Soft, NT, ND, BS+
Warm, Dry
AAOx3
Calm
More than 30 minutes spent in discharge including
Final examination of the patient
Summarizing hospital stay
Instructions for continuing care to all relevant caregivers
Preparation of discharge records, prescriptions, and referral forms
Total time spent (in minutes): 33mins
Discharge Plan
-
Patient Disposition: Home (Routine Discharge)
Discharge Diagnosis/Procedures: pneumonia, paroxysmal atrial fibrillation with spontaneous conversion to sinus rhythm
large hiatal gernia
severe gerd
elke on ckd stage IV
Condition: Good
Diet: As tolerated, Low Fat, Low Cholesterol and No added salt
Activity: As tolerated
Blood Work: BMP IN 5 DAYS
Activity Restrictions/Additional Instructions:
Presents with productive cough fatigue fever for for a few days. Was diagnosed with sepsis likely source of chest x-ray was suggestive of a right-sided midlung pneumonia. Culture data thus far negative. Influenza COVID-negative. Continue
Rocephin and doxycycline. However concern for potential aspiration therefore Rocephin was transitioned to Unasyn. Completed antibiotic course in the hospital.
There was concern for dysphagia evaluated by speech therapy did not believe this was oropharyngeal and believe it was more esophageal. Differential diagnosis for esophageal dysphagia could be achalasia, Schatzki rings, esophagitis/pill esophagitis.
Therefore EGD is currently indicated and therefore GI was consulted. For which an esophagram was completed that demonstrated a large nonsliding hiatal hernia. GI evaluated recommended starting Protonix outpatient GI follow-up for eventual EGD
colonoscopy.
Also, should be noted renal function continues to worsen. Creat up to 3.6. Was started on a bicarb drip with improvement in renal function to 2.8 along with resolution of metabolic acidosis.
- Will discharge home with sodium bicarb 650 mg twice a day with plans to start if repeat BMP shows metabolic acidosis as sodium bicarbonate has been shown to improve morbidity and mortality by reducing/slowing progression of CKD
Hospitalization was further complicated by a brief run of atrial fibrillation. Seen by cardiology. Started on rate control and antiarrhythmics with iv amio drip that was eventually transitioned to oral amio. Additionally, started on eliquis for
stroke prevention.
Will need outpatient cardiology, GI and nephrology follow up along wit PCP.
If symptoms return or worsen please return to the hospital or call pcp for next steps.
Referrals:
Kacy Villanueva MD [Active, Gastroenterology] - in two to four weeks
Anthony Agee DO [Active, Nephrology] - in two weeks
Kathrin Mcfarland DO [Non-Admitting Privileges, Family Practice]
Silvana Qureshi MD [Active, Cardiology] - 04/01/25 9:40 am
Referral Note: You have an appointment to see Dr. Silvana Qureshi's nurse practitioner, Azul, at the [place] office on 04/01/2025 at 9:40 AM. Please call [phone] if you need to reschedule.-
Additional Discharge Medication Instructions: -Take amiodarone 200 mg twice daily for the next month and then reduce to 200 mg once daily thereafter to help keep your heart in regular rhythm. 2 separate prescriptions were sent to your pharmacy, the
twice daily prescription has 0 refills in the once daily prescription has refills.
-Take Eliquis 5 mg twice daily to reduce your risk of stroke associated with atrial fibrillation
Do not start taking sodium bicarb tabs unless if PCP or acoustical tile drill press operator recommends that you do after obtaining blood work in 5days
Prescriptions:
New
levothyroxine 50 mcg Tablet
50 mcg PO HS Qty: 30 0RF
amiodarone 200 mg Tablet
200 mg PO BID Qty: 60 0RF
Eliquis 5 mg Tablet
5 mg PO BID Qty: 60 11RF
amiodarone 200 mg tablet
200 mg PO DAILY Qty: 30 11RF
pantoprazole 40 mg Tablet,Delayed Release (Dr/Ec)
40 mg PO BID Qty: 60 0RF
calcium carbonate [Calcium Antacid] 200 mg calcium (500 mg) Tablet,Chewable
400 mg PO Q4HPRN PRN (Reason: heartburn) Qty: 30 0RF
sodium bicarbonate 650 mg tablet
650 mg PO BID Qty: 60 0RF
Continued
Zinc Chelate 100 MG tablet
100 mg PO DAILY
ascorbic acid (vitamin C) [Vitamin C] 500 MG tablet
500 mg PO DAILY
coenzyme Q10 [Co Q-10] 100 MG capsule
100 mg PO DAILY
cholecalciferol (vitamin D3) 1,000 UNITS tablet
5,000 units PO DAILY
vitamin E 1,000 unit Tablet
1 tab PO DAILY
[id number]-fish oil 350-400 mg Capsule
750 cap PO TID
Berberin Complex
1 unit PO DAILY
Pqq
1 unit PO DAILY
cranberry
1 unit PO DAILY
magnesium gluconate 500 mg Tablet
1 mg PO BID
selenium 50 mcg Tablet
50 mcg PO DAILY
hawthorn 500 mg Capsule
1 mg PO DAILY
resveratrol 50 mg Capsule
50 mg PO DAILY
quercetin 500 mg Capsule
1 mg PO DAILY
acetaminophen 325 mg tablet
650 mg PO Q6HPRN PRN (Reason: mild pain) Qty: 14 0RF
Discharge Orders:
Discharge Patient (As Directed); Ordered 03/18/25
Ordered By: Mitchell Valero
Care Plan Goals
Care Plan Goals:
Problem: Readiness for enhanced knowledge related to diagnosis and treatment plan
Goal: Understand your diagnosis and treatment plan needs, including medications if applicable.
Instructions: Know your diagnosis, underlying causes and treatment plan options, including medications if applicable. Consult with your health care team to learn about your diagnosis and treatment plan, including medications if applicable.
Discharge Date and Time
Discharge Date/Time: 03/18/25 12:56
Print Language: CAMBODIAN
== END 2025-03-18 12:56 | disposition home or self-care (01) | DRG 871 ==
LOC: IVU 23:39
PROVIDERS: Hospitalist; Nurse Practitioner; Nurse Practitioner Gerontology; ADMITTING PHYSICIAN Hospitalist; ATTENDING PHYSICIAN Hospitalist; EMERGENCY PHYSICIAN Emergency Medicine; OTHER PHYSICIAN Internal Medicine Gastroenterology; OTHER PHYSICIAN Nuclear Medicine Nuclear Cardiology
DX: A41.89 Other specified sepsis (principal); J18.9 Pneumonia, unspecified organism; J69.0 Pneumonitis due to inhalation of food and vomit; D84.9 Immunodeficiency, unspecified; N17.9 Acute kidney failure, unspecified; E87.20 Acidosis, unspecified; K92.1 Melena; N18.4 Chronic kidney disease, stage 4 (severe); I25.10 Atherosclerotic heart disease of native coronary artery without angina pectoris; M06.9 Rheumatoid arthritis, unspecified; K44.9 Diaphragmatic hernia without obstruction or gangrene; K21.9 Gastro-esophageal reflux disease without esophagitis; D63.1 Anemia in chronic kidney disease; E78.5 Hyperlipidemia, unspecified; I48.0 Paroxysmal atrial fibrillation; I95.9 Hypotension, unspecified; R13.10 Dysphagia, unspecified; N32.3 Diverticulum of bladder; D50.9 Iron deficiency anemia, unspecified; R32 Unspecified urinary incontinence; N40.1 Benign prostatic hyperplasia with lower urinary tract symptoms; E87.6 Hypokalemia; R33.9 Retention of urine, unspecified; Z95.1 Presence of aortocoronary bypass graft; Z87.19 Personal history of other diseases of the digestive system; Z11.52 Encounter for screening for COVID-19; Z79.890 Hormone replacement therapy; Z87.01 Personal history of pneumonia (recurrent); Z86.19 Personal history of other infectious and parasitic diseases
CPT/HCPCS: 51701; 51798; 71046; 74220; 80048; 80053; 81003; 81015; 82607; 82728; 82746; 83540; 83550; 83605; 83735; 84443; 85025; 85027; 87040; 87086; 87502; 87811; 92610; 93005; 93306; 96361; 96374; 97163; 97165; 99285

== ENCOUNTER → 2025-05-05 09:20 | Outpatient (REF) | payer MEDICARE, OTHER, SELFPAY | LOC: RAD 09:20 | PROVIDERS: ATTENDING PHYSICIAN Internal Medicine | DX: J69.0 Pneumonitis due to inhalation of food and vomit (principal) | CPT/HCPCS: 71046 ==

== ENCOUNTER → 2025-07-07 13:40 | Outpatient (REF) | payer MEDICARE, OTHER, SELFPAY | LOC: HWRAD 13:40 | PROVIDERS: ATTENDING PHYSICIAN Family Medicine | DX: R06.09 Other forms of dyspnea (principal) | CPT/HCPCS: 71250 ==